=== PATIENT | female | born 1955 | race Caucasian/White ===

== ENCOUNTER 2018-02-20 07:57 | Inpatient (IN) | payer OTHER, MEDICAID ==
[2018-02-20] VITALS (9 sets, daily range): BP systolic 112–186; BP diastolic 55–107
[~2018-02-20] VITALS: Ht 167.6 cm; Wt 78.5 kg
[2018-02-20 08:31] LABS: HEMATOCRIT 31.8 % (37.0-47.0); PLATELET COUNT* 277 thou/uL (150-400); RBC 3.93 mil/uL (4.20-5.00); WBC 11.6 thou/uL (4.0-11.0)
[2018-02-20 08:32] LABS: ABSOLUTE BASOPHILS 0.1 thou/uL (0.0-0.2); ABSOLUTE EOSINOPHILS 0.2 thou/uL (0.0-0.7); ABSOLUTE LYMPHOCYTES 2.2 thou/uL (0.8-5.3); ABSOLUTE MONOCYTES 1.1 thou/uL (0.0-1.2); ABSOLUTE NEUTROPHILS 8.1 thou/uL (1.6-8.1); BASOPHILS 0.8 %; EOSINOPHILS 1.6 %; HEMOGLOBIN 10.5 gm/dL (12.0-15.0); LYMPHOCYTES 18.8 %; MCH 26.6 pg (26.0-34.0); MCHC 32.9 g/dL (28.0-37.0); MCV 80.9 fL (80.0-100.0); MONOCYTES 9.3 %; MPV 7.6 fl. (7.2-11.1); NUCLEATED RBCS 0 /100WBC; POLYS 69.5 %; RDW-CV 13.5 % (10.5-14.5)
[2018-02-20 08:41] LABS: APTT 25.9 Seconds (25.0-31.3); INR 1.1; PROTIME 10.3 Seconds (9.20-11.50)
[2018-02-20 08:52] LABS: ANION GAP 5 mmol/L (7-16); BUN 43 mg/dL (7-18); CALCIUM 8.5 mg/dL (8.5-10.1); CHLORIDE 105 mmol/L (98-107); CO2 29 mmol/L (21-32); GLUCOSE 313 mg/dL (70-99); POTASSIUM 5.4 mmol/L (3.5-5.1); SODIUM 139 mmol/L (136-145)
[2018-02-20 08:57] LABS: ALBUMIN 3.1 g/dL (3.4-5.0); ALKALINE PHOSPHATASE 130 U/L (46-116); NT-PRO BRAIN NAT PEPTIDE 6302 pg/mL (<300); SGOT 18 U/L (15-37); SGPT 17 U/L (30-65); TOTAL BILIRUBIN 0.2 mg/dL (<0.1-1.0); TOTAL PROTEIN 6.9 g/dL (6.4-8.2); TROPONIN-I LEVEL <0.06 ng/mL (<0.06)
[2018-02-20] MEDS ORDERED: CARVEDILOL3.125 MG PO (09:13)
[2018-02-20] MEDS ORDERED: IMDUR 30 MG TAB30 M1 PO (09:13)
[2018-02-20] MEDS ORDERED: LANTUS100 UNIT/M SUBQ (09:14)
[2018-02-20] MEDS ORDERED: NOVOLOG100 UNIT/1 SUBQ ×2 (09:15)
[2018-02-20] MEDS ORDERED: ASPIR 8181 MG PO (09:16)
[2018-02-20 10:07] LABS: BE -1.6 mmol/L (-2 to +3); HCO3 23.9 mmol/L (22.0-26.0); PCO2 43.4 mmHg (35.0-45.0); PO2 93.8 mmHg (75.0-100.0); pH 7.358 (7.340-7.450)
[2018-02-20 17:29] LABS: CALCIUM 8.3 mg/dL (8.5-10.1); CREATININE 2.2 mg/dL (0.6-1.3)
[2018-02-20 17:31] LABS: POTASSIUM 4.2 mmol/L (3.5-5.1)
[2018-02-21] VITALS (11 sets, daily range): BP systolic 107–134; BP diastolic 59–67
[2018-02-21 04:35] LABS: HEMATOCRIT 27.5 % (37.0-47.0); HEMOGLOBIN 9.1 gm/dL (12.0-15.0); MCH 27.1 pg (26.0-34.0); MCHC 33.3 g/dL (28.0-37.0); MCV 81.4 fL (80.0-100.0); MPV 7.8 fl. (7.2-11.1); RBC 3.37 mil/uL (4.20-5.00)
[2018-02-21 05:06] LABS: ALBUMIN 2.4 g/dL (3.4-5.0); CALCIUM 8.1 mg/dL (8.5-10.1); CREATININE 2.5 mg/dL (0.6-1.3); MAGNESIUM 1.8 mg/dL (1.8-2.4); POTASSIUM 4.5 mmol/L (3.5-5.1); TOTAL BILIRUBIN 0.2 mg/dL (<0.1-1.0); TOTAL PROTEIN 5.6 g/dL (6.4-8.2)
[2018-02-21 09:57] LABS: URINE BILIRUBIN NEGATIVE (Negative); URINE BLOOD NEGATIVE (Negative); URINE CLARITY CLEAR; URINE COLOR YELLOW; URINE GLUCOSE-RANDOM NEGATIVE (Negative); URINE KETONES NEGATIVE (Negative); URINE LEUKOCYTES-REFLEX NEGATIVE (Negative); URINE NITRITE-REFLEX NEGATIVE (Negative); URINE PROTEIN 2+ (Negative); URINE SPECIFIC GRAVITY 1.025 (1.005-1.030); URINE UROBILINOGEN 0.2 E.U./dl (0.2-1.0)
[2018-02-21 10:01] LABS: URINE POTASSIUM-RANDOM 37.2 mmol/L
[2018-02-21 10:08] LABS: SQUAMOUS 4-10 Moderate /LPF (0-3)
[2018-02-21 10:09] LABS: BACTERIA-REFLEX None Seen /HPF (None Seen); MUCUS 0-3 Light strn/LPF (None Seen); URINE RBC 0-2 Rare /HPF (0-2); URINE WBC-REFLEX 0-5 Rare /HPF (0-5)
[2018-02-21 10:10] LABS: CRYSTALS None Seen /LPF (None Seen); HYALINE CASTS 0-3 Few /LPF (None Seen)
--- NOTE | 2018-02-21 11:38 | EKG ---
[place] [address] ELECTROCARDIOGRAM REPORT Name: MARILUZ BARBOZA Room: [address] IN .R.#: [id number] Admission: 02/20/18 Attend Phys: Jose Suh, Discharge: Date of : 53 Report #: [id number] THIS REPORT FOR: //name// [facility] ED Test Date: 2018-02-20 Test Time: 09:25:30 Pat Name: MARILUZ BARBOZA Department: Room: Gender: F Lumpia W[employer] Maker: PATRICIA : 1955 Requested By: Sheldon Lewis Order Number: [id number] MD: Moises Ovalles Measurements Intervals [place] Rate: 64 P: 54 IN: 157 QRS: -28 QRSD: 133 T: 164 QT: 452 QTc: 467 Interpretive Statements Sinus rhythm Probable left atrial enlargement Left bundle branch block Compared to ECG 03/07/2009 03:10:29 Left bundle-branch block now present Myocardial infarct finding no longer present T-wave abnormality no longer present Electronically Signed On 02-21-2018 11:38:25 CDT by Moises Ovalles [email or web address] <ELECTRONICALLY SIGNED> By: Moises Ovalles MD, [facility] 02/21/18 1138 0925 0925 Moises Ovalles MD, [facility] /EPI
--- NOTE | 2018-02-21 13:19 | 2DMMODE ---
[place] [address] 2 D/M-MODE ECHOCARDIOGRAM Name: MARILUZ BARBOZA Room: 001-[facility] IN [facility]#: [id number] Admission: 02/20/18 Attend Phys: Jose Garcia Discharge: Date of : 53 Date of Service: 02/21/18 1319 Report #: [id number] THIS REPORT FOR: //name// APPROVED REPORT Study performed: 02/21/2018 09:38:21 EXAM: Comprehensive 2D, Doppler, and color-flow Echocardiogram Patient Location: In-Patient Room #: 001 Status: routine BSA: 1.91 HR: 81 bpm BP: 116/66 mmHg Rhythm: NSR Other Information Study Quality: Good Indications Congestive Heart Failure 2D Dimensions LVEF(%): 16.14 (>50%) IVSd: 14.90 (7-11mm) LVOT Diam: 21.15 (18-24mm) LVDd: 52.37 mm PWd: 11.98 (7-11mm) Ascending Ao: 29.62 (22-36mm) LVDs: 48.55 (25-40mm) Aortic Root: 31.42 mm Parr's LVEF: 16.14 % Volumes Left Atrial Volume (Systole) LA ESV Index: 42.00 mL/m2 Aortic Valve AoV Peak Ney.: 1.83 m/s AO Peak Gr.: 13.41 mmHg LVOT Max P.44 mmHg AO Mean Gr.: 7.48 mmHg LVOT Mean P.07 mmHg LVOT Max V: 1.05 m/s AO V2 VTI: 32.51 cm LVOT Mean V: 0.65 m/s LISETH (VTI): 1.93 cm2 LVOT V1 VTI: 17.85 cm Mitral Valve E/A Ratio: 0.72 [place] [address] 2 D/M-MODE ECHOCARDIOGRAM Name: MARILUZ BARBOZA Room: [address] IN .R.#: [id number] Admission: 02/20/18 Attend Phys: Jose Garcia Discharge: Date of : 53 Date of Service: 02/21/18 1319 Report #: [id number] MV Decel. Time: 145.04 ms MV E Max Ney.: 0.81 m/s MV PHT: 42.06 ms MVA (PHT): 5.23 cm2 TDI E/Lateral E': 8.10 E/Medial E': 11.57 Medial E' Ney.: 0.07 m/s Lateral E' Ney.: 0.10 m/s Pulmonary Valve PV Peak Ney.: 1.15 m/s PV Peak Gr.: 5.31 mmHg Tricuspid Valve TR Peak Gr.: 36.85 mmHg RVSP: 41.00 mmHg Left Ventricle The left ventricle is normal size. There is moderate global hypokinesis of the left ventricle. Mild concentric left ventricular hypertrophy. Left ventricular systolic function is moderately decreased. LVEF is 35-40%. Grade I - abnormal relaxation pattern. Right Ventricle The right ventricle is normal size. The right ventricular systolic function is normal. Atria Left atrium is mild to moderately dilated. The right atrium size is normal. Aortic Valve Mild aortic valve sclerosis. No aortic regurgitation is present. No hemodynamically significant valvular aortic stenosis. Mitral Valve The mitral valve is normal in structure. Mild mitral regurgitation. No evidence of mitral valve stenosis. Tricuspid Valve The tricuspid valve is normal in structure. Mild tricuspid regurgitation. The RVSP is 40-45 mmHg. Pulmonic Valve The pulmonary valve is normal in structure. There is no pulmonic [place] [address] 2 D/M-MODE ECHOCARDIOGRAM Name: MARILUZ BARBOZA Room: [address] IN [facility]#: [id number] Admission: 02/20/18 Attend Phys: Jose Garcia Discharge: Date of : 53 Date of Service: 02/21/18 1319 Report #: [id number] Great Vessels The aortic root is normal in size. IVC is normal in size and collapses with >50% inspiration Pericardium There is no pericardial effusion. <Conclusion> The left ventricle is normal size. Mild concentric left ventricular hypertrophy. Left ventricular systolic function is moderately decreased. LVEF is 35-40%. Grade I - abnormal relaxation pattern. The right ventricle is normal size. Left atrium is mild to moderately dilated. Mild aortic valve sclerosis. No aortic regurgitation is present. No hemodynamically significant valvular aortic stenosis. The mitral valve is normal in structure. Mild mitral regurgitation. The tricuspid valve is normal in structure. Mild tricuspid regurgitation. The RVSP is 40-45 mmHg. IVC is normal in size and collapses with >50% inspiration There is no pericardial effusion. There is moderate global hypokinesis of the left ventricle. <ELECTRONICALLY SIGNED> By: Moises Ovalles MD, FACC 02/21/18 1319 18 18 Moises Ovalles MD, FACC /INF
[2018-02-22] VITALS (11 sets, daily range): BP systolic 115–196; BP diastolic 57–102
[2018-02-22 04:41] LABS: HEMOGLOBIN 9.6 gm/dL (12.0-15.0); MCH 26.5 pg (26.0-34.0); MCHC 33.1 g/dL (28.0-37.0); MCV 80.2 fL (80.0-100.0); MPV 8.4 fl. (7.2-11.1); RBC 3.61 mil/uL (4.20-5.00); RDW-CV 14.3 % (10.5-14.5); WBC 13.1 thou/uL (4.0-11.0)
[2018-02-22 04:47] LABS: ALBUMIN 2.6 g/dL (3.4-5.0); CALCIUM 8.3 mg/dL (8.5-10.1); CREATININE 2.7 mg/dL (0.6-1.3); PHOSPHORUS* 6.5 mg/dL (2.5-4.9); POTASSIUM 4.9 mmol/L (3.5-5.1)
[2018-02-22 05:00] LABS: MAGNESIUM 1.8 mg/dL (1.8-2.4)
--- NOTE | 2018-02-22 09:35 | CON ---
[address] [address] CONSULTATION Name: MARILUZ BARBOZA Room: [address] IN M.R.#: [id number] Admission: 02/20/18 Attend Phys: Jose Suh, Discharge: Date of : 53 Report #: [id number] THIS REPORT FOR: //name// CC: Chuckie Suh NEPHROLOGY CONSULTATION CONSULTING PHYSICIAN: Dr. Suh. REASON FOR CONSULTATION: Acute kidney injury. HISTORY OF PRESENT ILLNESS: A 62-year-old female who was admitted with shortness of breath, which had progressively gotten worse. She underwent a coronary bypass surgery at [facility] about 3 months ago. She was intubated and there were concerns for pneumonia and pulmonary edema. She is currently being followed by Cardiology and Pulmonology. She did receive one dose of Lasix in the ER and today she is on a weaning trial. Her chest x-ray appears to be improved. Her creatinine has risen. She does not have an outpatient skid man. History is obtained largely through the chart review. REVIEW OF SYSTEMS: Constitutional, psych, heme, eyes, ENT, respiratory, cardiac, GI, , endocrine, all negative except as documented above. PAST MEDICAL HISTORY: Coronary artery disease with a history of CABG at [facility] in 11/2017. There is mention in the chart of a history of hepatitis. She has a history of diabetes, history of carotid endarterectomy. CURRENT MEDICATIONS: Reviewed. SOCIAL HISTORY: No tobacco. FAMILY HISTORY: Positive for hypertension. PHYSICAL EXAMINATION: VITAL SIGNS: Blood pressure 115/65, pulse 55, respirations 12, temperature 36.6. GENERAL: No acute distress. EYES: Closed. EARS: Externally normal. CARDIOVASCULAR: Regular rate. LUNGS: Diminished breath sounds. ABDOMEN: Soft. MUSCULOSKELETAL: Nontender. PSYCHIATRIC: Intubated and somewhat restless. LABORATORY DATA: White cell count 10, hemoglobin 9.1, platelets 216[place] [address] CONSULTATION Name: MARILUZ BARBOZA Room: [address] IN [facility]#: [id number] Admission: 02/20/18 Attend Phys: Jose Suh, Discharge: Date of : 53 Report #: [id number], potassium 4.5, chloride 107, bicarbonate 25, BUN 51, creatinine 2.5, glucose 220, calcium 8.1, magnesium 1.8, albumin 2.4. UA noted. ASSESSMENT: 1. Acute kidney injury with admission creatinine of 2. UA noted. Creatinine up to 2.5 on 02/21. 2. Hypoalbuminemia with an albumin of 2.4 on 02/21. 3. Proteinuria with urine protein to creatinine ratio of 1.4. 4. Anemia with hemoglobin of 9.1 on 02/21. 5. Questionable left kidney fluid collection/cyst/mass described on ultrasound. 6. Pulmonary edema on admission. 7. Coronary artery disease with coronary artery bypass graft at [facility] 3 months ago. 8. Diabetes. 9. History of carotid endarterectomy. PLAN: 1. She has good urine output. Chest x-ray appears improved. Creatinine has bumped up today. Would hold on any further diuresis. She has good urine output. 2. She is on antibiotics. 3. 10/2017, EF was 50%. 4. She will need a followup renal imaging. At this time, I do not feel there is any urgent need to repeat this. We will monitor closely. Thank you for requesting my opinion in the care and management of this patient. <ELECTRONICALLY SIGNED> By: David Sanchez MD 02/22/18 0935 1138 [id number] Sanchez MD /nt
[2018-02-22 10:53] LABS: BE -4.8 mmol/L (-2 to +3); HCO3 19.6 mmol/L (22.0-26.0); PCO2 34.2 mmHg (35.0-45.0); PO2 78.4 mmHg (75.0-100.0); pH 7.377 (7.340-7.450)
[2018-02-23] VITALS (17 sets, daily range): BP systolic 124–182; BP diastolic 58–108
[2018-02-23 03:45] LABS: HEMATOCRIT 33.6 % (37.0-47.0); HEMOGLOBIN 11.1 gm/dL (12.0-15.0); MCH 26.5 pg (26.0-34.0); MCV 80.4 fL (80.0-100.0); RBC 4.18 mil/uL (4.20-5.00); RDW-CV 14.2 % (10.5-14.5); WBC 15.7 thou/uL (4.0-11.0)
[2018-02-23 04:01] LABS: ALBUMIN 2.5 g/dL (3.4-5.0); CALCIUM 8.3 mg/dL (8.5-10.1); CREATININE 2.3 mg/dL (0.6-1.3); POTASSIUM 4.1 mmol/L (3.5-5.1); TOTAL BILIRUBIN 0.2 mg/dL (<0.1-1.0)
[2018-02-23 08:39] LABS: BE -3.6 mmol/L (-2 to +3); HCO3 20.6 mmol/L (22.0-26.0); PCO2 34.5 mmHg (35.0-45.0); PO2 109.5 mmHg (75.0-100.0); pH 7.393 (7.340-7.450)
[2018-02-23 13:39] LABS: BE -3.4 mmol/L (-2 to +3); HCO3 20.4 mmol/L (22.0-26.0); PCO2 32.9 mmHg (35.0-45.0); PO2 110.5 mmHg (75.0-100.0)
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
[2018-02-23 15:38] LABS: BE -2.8 mmol/L (-2 to +3); HCO3 20.8 mmol/L (22.0-26.0); PCO2 32.6 mmHg (35.0-45.0); PO2 101.5 mmHg (75.0-100.0); pH 7.422 (7.340-7.450)
[2018-02-24] VITALS (18 sets, daily range): BP systolic 105–157; BP diastolic 60–86
[2018-02-24 03:59] LABS: HEMATOCRIT 37.4 % (37.0-47.0); HEMOGLOBIN 12.2 gm/dL (12.0-15.0); MCH 26.4 pg (26.0-34.0); MCHC 32.5 g/dL (28.0-37.0); MCV 81.1 fL (80.0-100.0); MPV 7.6 fl. (7.2-11.1); RBC 4.61 mil/uL (4.20-5.00); RDW-CV 14.5 % (10.5-14.5); WBC 20.9 thou/uL (4.0-11.0)
[2018-02-24 04:12] LABS: CALCIUM 8.8 mg/dL (8.5-10.1); CREATININE 2.3 mg/dL (0.6-1.3); POTASSIUM 4.4 mmol/L (3.5-5.1); TOTAL BILIRUBIN 0.3 mg/dL (<0.1-1.0); TOTAL PROTEIN 6.8 g/dL (6.4-8.2)
[2018-02-24 04:30] LABS: BE -2.9 mmol/L (-2 to +3); HCO3 21.1 mmol/L (22.0-26.0); PCO2 34.5 mmHg (35.0-45.0); pH 7.405 (7.340-7.450)
[2018-02-24 04:31] LABS: PO2 125.7 mmHg (75.0-100.0)
[2018-02-24 04:39] LABS: ALBUMIN 3.1 g/dL (3.4-5.0); CALCIUM 8.8 mg/dL (8.5-10.1); CREATININE 2.3 mg/dL (0.6-1.3); PHOSPHORUS* 5.2 mg/dL (2.5-4.9); POTASSIUM 4.4 mmol/L (3.5-5.1)
[2018-02-25] VITALS (8 sets, daily range): BP systolic 113–174; BP diastolic 59–91
[2018-02-25 02:07] LABS: GLYCOHEMOGLOBIN (HGB A1C) 7.7 % (4.8-5.6)
[2018-02-25 04:09] LABS: HEMATOCRIT 35.7 % (37.0-47.0); HEMOGLOBIN 11.6 gm/dL (12.0-15.0); MCH 26.4 pg (26.0-34.0); MCHC 32.4 g/dL (28.0-37.0); MCV 81.5 fL (80.0-100.0); MPV 7.8 fl. (7.2-11.1); RBC 4.38 mil/uL (4.20-5.00); RDW-CV 14.2 % (10.5-14.5); WBC 17.4 thou/uL (4.0-11.0)
[2018-02-25 04:36] LABS: CALCIUM 8.5 mg/dL (8.5-10.1); CREATININE 2.4 mg/dL (0.6-1.3); MAGNESIUM 2.2 mg/dL (1.8-2.4); POTASSIUM 4.3 mmol/L (3.5-5.1)
[2018-02-25 10:48] LABS: CHOLESTEROL 313 mg/dL (<200); HDL CHOLESTEROL 32 mg/dL (>40); TC:HDL 9.8 Ratio (Not establshd); TRIGLYCERIDE 470 mg/dL (<150); VLDL 94 mg/dL (<40)
[2018-02-25 10:49] LABS: LDL CHOLESTEROL ND mg/dL (<100); SERUM ASSESSMENT Clear
[2018-02-26 00:05] VITALS: BP 141/77
[2018-02-26 05:46] LABS: HEMATOCRIT 33.9 % (37.0-47.0); HEMOGLOBIN 11.1 gm/dL (12.0-15.0); MCH 26.5 pg (26.0-34.0); MCHC 32.8 g/dL (28.0-37.0); MCV 80.8 fL (80.0-100.0); MPV 7.7 fl. (7.2-11.1); RBC 4.2 mil/uL (4.20-5.00); RDW-CV 14.2 % (10.5-14.5); WBC 13.5 thou/uL (4.0-11.0)
[2018-02-26 06:13] LABS: ALBUMIN 2.9 g/dL (3.4-5.0); CALCIUM 8.4 mg/dL (8.5-10.1); CREATININE 2.4 mg/dL (0.6-1.3); MAGNESIUM 2.3 mg/dL (1.8-2.4); POTASSIUM 4.4 mmol/L (3.5-5.1); TOTAL BILIRUBIN 0.2 mg/dL (<0.1-1.0); TOTAL PROTEIN 5.9 g/dL (6.4-8.2)
[2018-02-26 08:00] VITALS: BP 106/52
[2018-02-26 11:00] VITALS: BP 122/70
[2018-02-26 20:00] VITALS: BP 141/82
[2018-02-27 00:45] VITALS: BP 158/83
[2018-02-27 04:23] VITALS: BP 115/57
[2018-02-27 09:30] VITALS: BP 124/65
[2018-02-27 11:00] VITALS: BP 118/66
[2018-02-27 16:00] VITALS: BP 128/71
--- NOTE | 2018-02-27 17:30 | CON ---
[address] [address] CONSULTATION Name: MARILUZ BARBOZA Room: [address] IN M.R.#: [id number] Admission: 02/20/18 Attend Phys: Jose Suh, Discharge: Date of : 53 Report #: [id number] THIS REPORT FOR: //name// CC: Chuckie Suh DATE OF SERVICE: 02/20/2018 HISTORY OF PRESENT ILLNESS: The patient is a 62-year-old white female who I was asked to see in the hospital today after she had to be intubated for shortness of breath. The patient has an extensive past medical history. Unfortunately, she has never been here to [place] before. However, she does have a long history of hypertension, diabetes, and hyperlipidemia. She has a history of chest pain. Apparently, a year and a half ago she had a coronary stent placed at because of insurance purposes. However, she developed restenosis. She had recurrent chest pain and eventually because of insurance purpose she had to go to [facility] on the [address] and had quadruple coronary artery bypass surgery in November of this year. She apparently had carotid endarterectomy at the same time. According to the sister who is present, surgery went well. However, since the surgery she has been persistently short of breath. She is now on home oxygen. She has had to be readmitted to [facility] in [place] with fluid overload. She will get diuresed, but develop renal insufficiency, has to be taken off of Lasix. She has had a thoracentesis at [facility]. Recently, she has had increasing shortness of breath. Because of the severe shortness of breath, she finally called an ambulance today and brought to [place] and had to be intubated. I was asked to see her for further evaluation and treatment. Apparently, according to sister who is present, she has not had any significant cough, although she has had a fever and swelling of her feet. She has been lightheaded. She has had some right-sided chest pain that is nonexertional. She has had no palpitations or syncope. PAST MEDICAL HISTORY: Otherwise significant for tonsillectomy, hysterectomy, hypertension, diabetes, hyperlipidemia. MEDICATIONS: On admission consisted of Imdur, carvedilol, insulin, aspirin. ALLERGIES: SHE HAS INTOLERANCE TO CODEINE, PENICILLIN, AND SULFA. FAMILY HISTORY: Her mom had a stroke. SOCIAL HISTORY: She is . She and her live in [place]. No smoking or alcohol abuse. REVIEW OF SYSTEMS: She apparently has never had a stroke. [place] [address] CONSULTATION Name: MARILUZ BARBOZA Room: [address] IN .R#: [id number] Admission: 02/20/18 Attend Phys: Jose Suh, Discharge: Date of : 53 Report #: [id number] because of glaucoma and diabetes. She has no history of asthma. She has had a peptic ulcer. She has chronic kidney disease. No liver disease, no cancer. No psychiatric illness. PHYSICAL EXAMINATION: GENERAL: Revealed an elderly female who is lying in bed. She is intubated. VITAL SIGNS: She has blood pressure of 140/80, pulse 70. She is afebrile. HEENT: She is anicteric, conjunctivae pink. Mucous membranes appear dry. NECK: Veins not distended. Neck was supple. CHEST: Clear to auscultation. CARDIAC: Regular rate and rhythm. ABDOMEN: Soft. EXTREMITIES: Had no pitting edema. Dorsalis pedis pulse could not be palpated. SKIN: Cool and dry. NEUROLOGIC: She was moving extremities to pain. LABORATORY DATA: ECG shows a sinus rhythm, left ventricular hypertrophy, repolarization changes, evidence of previous septal infarction. Workup in the Emergency Room today, she had portable chest x-ray that showed the patient was intubated, left pleural effusion, in fact she has pneumonia with pulmonary infiltrates, cardiomegaly. Her lab work, sodium 139, BUN 43, creatinine 2.0, potassium 5.4, albumin 3.1. Troponin 0.06. BNP 6302. White blood cell count 11.6, hemoglobin 10.5. IMPRESSION AND RECOMMENDATIONS: 1. Pneumonia. The patient is currently intubated. 2. Diastolic heart failure. The patient has been on Lasix. 3. Chronic kidney disease. 4. Diabetes. 5. Hypertension. The patient has been on a beta shemar. 6. Hyperlipidemia. The patient does not appear to be on a statin drug at this time. 7. Legally blind. 8. Status post carotid endarterectomy. <ELECTRONICALLY SIGNED> By: Lonny Silva MD, FACC 02/27/18 1730 1259 [id number] Silva MD, FACC /nt
[2018-02-27 20:00] VITALS: BP 154/90
[2018-02-28] VITALS: BP 143/72; BP 164/84
[2018-02-28 03:35] VITALS: BP 127/69
[2018-02-28 08:15] VITALS: BP 186/90
[2018-02-28] MEDS ORDERED: HOME MEDICATION OPHTHALMIC (11:59)
[2018-02-28] MEDS ORDERED: LEVAQUIN 250 M250 MG PO (11:59)
[2018-02-28 12:00] VITALS: BP 125/61
[2018-02-28 16:00] VITALS: BP 135/73
[2018-02-28 20:00] VITALS: BP 156/85
[2018-03-01] VITALS: BP 138/82
[2018-03-01 01:41] LABS: URINE BILIRUBIN NEGATIVE (Negative); URINE BLOOD 2+ (Negative); URINE CLARITY CLEAR; URINE COLOR STRAW; URINE GLUCOSE-RANDOM 2+ (Negative); URINE KETONES NEGATIVE (Negative); URINE LEUKOCYTES-REFLEX NEGATIVE (Negative); URINE NITRITE-REFLEX NEGATIVE (Negative); URINE PROTEIN 3+ (Negative); URINE UROBILINOGEN 0.2 E.U./dl (0.2-1.0)
[2018-03-01 02:18] LABS: CASTS None Seen /LPF (None Seen); SQUAMOUS 4-10 Moderate /LPF (0-3)
[2018-03-01 02:19] LABS: BACTERIA-REFLEX 1-9 Few /HPF (None Seen); CRYSTALS None Seen /LPF (None Seen); URINE RBC 0-2 Rare /HPF (0-2); URINE WBC-REFLEX 0-5 Rare /HPF (0-5)
[2018-03-01 04:38] VITALS: BP 127/69
[2018-03-01 05:17] LABS: HEMATOCRIT 30.5 % (37.0-47.0); HEMOGLOBIN 9.8 gm/dL (12.0-15.0); MCH 26.1 pg (26.0-34.0); MCHC 32.1 g/dL (28.0-37.0); MCV 81.5 fL (80.0-100.0); MPV 7.7 fl. (7.2-11.1); RBC 3.74 mil/uL (4.20-5.00); RDW-CV 14.1 % (10.5-14.5)
[2018-03-01 05:38] LABS: ALBUMIN 2.5 g/dL (3.4-5.0); CALCIUM 8.1 mg/dL (8.5-10.1); MAGNESIUM 1.9 mg/dL (1.8-2.4); POTASSIUM 4.3 mmol/L (3.5-5.1); TOTAL BILIRUBIN 0.2 mg/dL (<0.1-1.0); TOTAL PROTEIN 5.5 g/dL (6.4-8.2)
[2018-03-01 08:30] VITALS: BP 171/91
[2018-03-01 12:14] VITALS: BP 125/67
[2018-03-01 15:49] VITALS: BP 130/77
[2018-03-01 20:20] VITALS: BP 157/84
[2018-03-02] VITALS: BP 155/92
[2018-03-02 03:59] VITALS: BP 126/70
[2018-03-02 08:00] VITALS: BP 155/88
[2018-03-02 11:46] VITALS: BP 155/88
[2018-03-02 12:00] VITALS: BP 95/61
[2018-03-02] MEDS ORDERED: IMDUR 30 MG TAB30 M1 PO (12:43)
[2018-03-02] MEDS ORDERED: GAS RELIEF80 MG PO (12:44)
[2018-03-02] MEDS ORDERED: LASIX 40 MG TAB40 M1 PO (12:44)
[2018-03-02] MEDS ORDERED: LANTUS100 UNIT/M SUBQ ×2 (12:45→12:46)
[2018-03-02] MEDS ORDERED: PREDNISONE 20 M20 MG PO (12:45)
== END 2018-03-02 14:38 | disposition home or self-care (01) | DRG 208 ==
LOC: M.ERS 07:57 → M.ICU 08:56 → M.TBA-ER 08:56 → M.ICU 10:15 → M.2W 02-25 12:25
PROVIDERS: Family Medicine; Internal Medicine; Internal Medicine Nephrology; Internal Medicine Pulmonary Disease; Psychiatry & Neurology Neurology; ADMIT Family Medicine
PROC: 0BH17EZ Insertion of Endotracheal Airway into Trachea, Via Natural or Artificial Opening (ICD-10-PCS; principal; 2018-02-20)
PROC: 5A1945Z Respiratory Ventilation, 24-96 Consecutive Hours (ICD-10-PCS; principal; 2018-02-20)
PROC: 02HV33Z Insertion of Infusion Device into Superior Vena Cava, Percutaneous Approach (ICD-10-PCS; principal; 2018-02-20)
DX: J69.0 Pneumonitis due to inhalation of food and vomit (principal); J96.01 Acute respiratory failure with hypoxia; N17.0 Acute kidney failure with tubular necrosis; G93.40 Encephalopathy, unspecified; I50.23 Acute on chronic systolic (congestive) heart failure; I13.0 Hypertensive heart and chronic kidney disease with heart failure and stage 1 through stage 4 chronic kidney disease, or unspecified chronic kidney disease; N18.3 Chronic kidney disease, stage 3 (moderate); E11.40 Type 2 diabetes mellitus with diabetic neuropathy, unspecified; E11.22 Type 2 diabetes mellitus with diabetic chronic kidney disease; I25.10 Atherosclerotic heart disease of native coronary artery without angina pectoris; D64.9 Anemia, unspecified; H54.8 Legal blindness, as defined in USA; K73.9 Chronic hepatitis, unspecified; E78.5 Hyperlipidemia, unspecified; E87.5 Hyperkalemia; F32.9 Major depressive disorder, single episode, unspecified; D33.3 Benign neoplasm of cranial nerves; I16.0 Hypertensive urgency; R80.9 Proteinuria, unspecified; Z90.710 Acquired absence of both cervix and uterus; Z95.1 Presence of aortocoronary bypass graft; Z88.6 Allergy status to analgesic agent; Z88.0 Allergy status to penicillin; Z88.2 Allergy status to sulfonamides; Z98.890 Other specified postprocedural states; Z79.2 Long term (current) use of antibiotics; Z79.82 Long term (current) use of aspirin; Z79.4 Long term (current) use of insulin; Z79.899 Other long term (current) drug therapy; Z88.1 Allergy status to other antibiotic agents; Z88.8 Allergy status to other drugs, medicaments and biological substances; Z91.14 Patient's other noncompliance with medication regimen; Z83.3 Family history of diabetes mellitus; Z82.49 Family history of ischemic heart disease and other diseases of the circulatory system; Z82.3 Family history of stroke

== ENCOUNTER 2018-11-08 05:06 | Emergency (ER) | payer OTHER, MEDICAID ==
[~2018-11-08] VITALS: Ht 162.6 cm; Wt 81.7 kg
[~2018-11-08 05:06] MED LIST: ASPIR 8181 MG PO; CARVEDILOL3.125 MG PO; GAS RELIEF80 MG PO; HOME MEDICATION OPHTHALMIC; IMDUR 30 MG TAB30 M1 PO; LANTUS100 UNIT/M SUBQ; LASIX 40 MG TAB40 M1 PO; LEVAQUIN 250 M250 MG PO; NOVOLOG100 UNIT/1 SUBQ; PREDNISONE 20 M20 MG PO
[2018-11-08 05:22] LABS: BE -7.5 mmol/L (-2 to +3)
[2018-11-08 05:25] LABS: PCO2 54.5 mmHg (35.0-45.0); pH 7.199 (7.340-7.450)
[2018-11-08 05:40] LABS: ABSOLUTE BASOPHILS 0.1 thou/uL (0.0-0.2); ABSOLUTE EOSINOPHILS 0.1 thou/uL (0.0-0.7); ABSOLUTE LYMPHOCYTES 1.8 thou/uL (0.8-5.3); ABSOLUTE NEUTROPHILS 8.5 thou/uL (1.6-8.1); BASOPHILS 0.7 %; EOSINOPHILS 1.3 %; HEMATOCRIT 33.3 % (37.0-47.0); HEMOGLOBIN 10.8 gm/dL (12.0-15.0); LYMPHOCYTES 15.4 %; MCH 27.6 pg (26.0-34.0); MCHC 32.4 g/dL (28.0-37.0); MCV 85.4 fL (80.0-100.0); MONOCYTES 8.5 %; MPV 7.9 fl. (7.2-11.1); NUCLEATED RBCS 0 /100WBC; PLATELET COUNT* 386 thou/uL (150-400); POLYS 74.1 %; RDW-CV 12.7 % (10.5-14.5); WBC 11.5 thou/uL (4.0-11.0)
[2018-11-08 05:55] LABS: PROTIME 10.2 Seconds (9.20-11.50)
[2018-11-08 06:05] LABS: URINE BILIRUBIN NEGATIVE (Negative); URINE BLOOD 2+ (Negative); URINE CLARITY CLEAR; URINE COLOR STRAW; URINE GLUCOSE-RANDOM 3+ (Negative); URINE KETONES NEGATIVE (Negative); URINE LEUKOCYTES-REFLEX NEGATIVE (Negative); URINE NITRITE-REFLEX NEGATIVE (Negative); URINE PROTEIN 3+ (Negative); URINE UROBILINOGEN 0.2 E.U./dl (0.2-1.0)
[2018-11-08 06:09] LABS: ANION GAP 12 mmol/L (7-16); BUN 75 mg/dL (7-18); CALCIUM 8.6 mg/dL (8.5-10.1); CHLORIDE 103 mmol/L (98-107); CO2 22 mmol/L (21-32); CREATININE 3.2 mg/dL (0.6-1.3); GLUCOSE 405 mg/dL (70-99); SODIUM 137 mmol/L (136-145)
[2018-11-08 06:17] LABS: ALKALINE PHOSPHATASE 114 U/L (46-116); NT-PRO BRAIN NAT PEPTIDE 14411 pg/mL (<300); SGOT 16 U/L (15-37); SGPT 16 U/L (30-65); TOTAL BILIRUBIN 0.2 mg/dL (<0.1-1.0); TROPONIN-I LEVEL <0.06 ng/mL (<0.06)
[2018-11-08 06:20] LABS: AMORPHOUS URATES Few /LPF (None Seen); BACTERIA-REFLEX 1-9 Few /HPF (None Seen); CASTS None Seen /LPF (None Seen); MUCUS 4-6 Moderate strn/LPF (None Seen); SQUAMOUS 0-3 Few /LPF (0-3); URINE RBC 3-10 Few /HPF (0-2); URINE WBC-REFLEX 0-5 Rare /HPF (0-5)
[2018-11-08] MEDS ORDERED: CARVEDILOL12.5 MG PO (06:48)
[2018-11-08 07:16] LABS: BE -4.9 mmol/L (-2 to +3); PCO2 39.6 mmHg (35.0-45.0); pH 7.333 (7.340-7.450)
[2018-11-08 07:18] LABS: PO2 356.3 mmHg (75.0-100.0)
[2018-11-08 08:50] VITALS: BP 157/81
--- NOTE | 2018-11-08 09:48 | EKG ---
[place] [address] ELECTROCARDIOGRAM REPORT Name: MARILUZ BARBOZA Room: [facility]#: [id number] Admission: 11/08/18 Attend Phys: Discharge: 11/08/18 Date of : 53 Report #: [id number] THIS REPORT FOR: //name// [facility] ED Test Date: 2018-11-08 Test Time: 05:26:51 Pat Name: MARILUZ BARBOZA Department: Room: Gender: F [employer]: MIGUEL ANGEL : 1955 Requested By: Wendy Su Order Number: [id number] MD: Taz Bowie Measurements Intervals [place] Rate: 93 P: 148 VA: 160 QRS: -27 QRSD: 146 T: 152 QT: 411 QTc: 512 Interpretive Statements Sinus or ectopic atrial rhythm Left atrial enlargement IVCD, consider atypical LBBB Compared to ECG 02/20/2018 09:25:30 Ectopic atrial rhythm now present Sinus rhythm no longer present Electronically Signed On 11-08-2018 9:48:23 MANDREL CLEANER by Taz Bowie [email or web address] <ELECTRONICALLY SIGNED> By: Taz Bowie MD, FACC 11/08/18 0948 5 Taz Bowie MD, [facility] /EPI
== END 2018-11-08 08:50 | disposition still patient (30) ==
LOC: M.ERS 05:06
PROVIDERS: Emergency Medicine
DX: I50.9 Heart failure, unspecified (principal); R45.1 Restlessness and agitation; R41.0 Disorientation, unspecified; R09.02 Hypoxemia; E11.9 Type 2 diabetes mellitus without complications; K73.9 Chronic hepatitis, unspecified; Z95.1 Presence of aortocoronary bypass graft; Z90.710 Acquired absence of both cervix and uterus; Z90.49 Acquired absence of other specified parts of digestive tract; Z88.2 Allergy status to sulfonamides; Z88.0 Allergy status to penicillin; Z88.1 Allergy status to other antibiotic agents; Z88.5 Allergy status to narcotic agent; Z88.8 Allergy status to other drugs, medicaments and biological substances

== ENCOUNTER 2019-06-22 10:28 | Inpatient (IN) | payer OTHER, MEDICAID ==
[~2019-06-22] VITALS: Ht 170.2 cm; Wt 76.2 kg
[~2019-06-22 10:28] MED LIST changes: +CARVEDILOL12.5 MG PO
[2019-06-22 10:33] VITALS: BP 187/76
[2019-06-22] MEDS ORDERED: CARVEDILOL12.5 MG PO (10:58)
[2019-06-22] MEDS ORDERED: LANTUS100 UNIT/M SUBQ (11:00)
[2019-06-22 12:45] LABS: ABSOLUTE BASOPHILS 0.1 thou/uL (0.0-0.2); ABSOLUTE EOSINOPHILS 0.1 thou/uL (0.0-0.7); ABSOLUTE LYMPHOCYTES 1.7 thou/uL (0.8-5.3); ABSOLUTE MONOCYTES 0.9 thou/uL (0.0-1.2); ABSOLUTE NEUTROPHILS 5.8 thou/uL (1.6-8.1); EOSINOPHILS 0.8 %; HEMATOCRIT 30.6 % (37.0-47.0); HEMOGLOBIN 10.7 gm/dL (12.0-15.0); LYMPHOCYTES 19.8 %; MCH 29.5 pg (26.0-34.0); MCV 84.5 fL (80.0-100.0); MONOCYTES 10.8 %; MPV 7.4 fl. (7.2-11.1); NUCLEATED RBCS 0 /100WBC; PLATELET COUNT* 245 thou/uL (150-400); POLYS 67.6 %; RBC 3.62 mil/uL (4.20-5.00); RDW-CV 12.5 % (10.5-14.5); WBC 8.6 thou/uL (4.0-11.0)
[2019-06-22 12:53] LABS: ANION GAP 8 mmol/L (7-16); BUN 53 mg/dL (7-18); CALCIUM 8.6 mg/dL (8.5-10.1); CHLORIDE 100 mmol/L (98-107); CO2 30 mmol/L (21-32); GLUCOSE 229 mg/dL (70-99); SODIUM 138 mmol/L (136-145)
[2019-06-22 13:04] LABS: ALBUMIN 3.3 g/dL (3.4-5.0); ALKALINE PHOSPHATASE 92 U/L (46-116); LIPASE 365 U/L (73-393); NT-PRO BRAIN NAT PEPTIDE 9514 pg/mL (<300); SGOT 11 U/L (15-37); SGPT 18 U/L (30-65); TOTAL BILIRUBIN 0.2 mg/dL (<0.1-1.0); TOTAL PROTEIN 6.5 g/dL (6.4-8.2); TROPONIN-I LEVEL <0.06 ng/mL (<0.06)
[2019-06-22 15:45] VITALS: BP 153/69
[2019-06-22 15:50] VITALS: BP 146/77
[2019-06-22] MEDS ORDERED: IMDUR 30 MG TAB30 M1 PO (16:29)
[2019-06-22] MEDS ORDERED: LASIX 40 MG TAB40 M2 PO (16:30)
[2019-06-22] MEDS ORDERED: BRIMONIDINE TAR15 M1 OPHTHALMIC (16:36)
[2019-06-22] MEDS ORDERED: TIMOLOL GL0.5 %/5 M1 OPHTHALMIC (16:38)
--- NOTE | 2019-06-22 17:22 | EKG ---
[place] [address] ELECTROCARDIOGRAM REPORT Name: MARILUZ BARBOZA Room: [address] ADM IN .R.#: [id number] Admission: 06/22/19 Attend Phys: Virgilio Cheney MD Discharge: Date of : 53 Report #: [id number] THIS REPORT FOR: //name// [facility] ED Test Date: 2019-06-22 Test Time: 10:33:10 Pat Name: MARILUZ BARBOZA Department: Room: [facility] Gender: F Hot Car Charger: KAMINI : 1955 Requested By: Aleksandr Lynn Order Number: [id number] MD: Charles Barton Measurements Intervals [place] Rate: 91 P: 95 MN: 188 QRS: -54 QRSD: 124 T: 116 QT: 396 QTc: 488 Interpretive Statements Atrial-sensed ventricular-paced rhythm No further analysis attempted due to paced rhythm Compared to ECG 11/08/2018 05:26:51 Ectopic atrial rhythm no longer present Atrial abnormality no longer present Electronically Signed On 06-22-2019 17:22:47 CDT by Charles Barton [email or web address] <ELECTRONICALLY SIGNED> By: Charles Barton MD, FACC 06/22/19 1722 1033 1033 Charles Barton MD, FAC /EPI
[2019-06-22 17:29] LABS: URINE BILIRUBIN NEGATIVE (Negative); URINE BLOOD 2+ (Negative); URINE CLARITY CLEAR; URINE COLOR YELLOW; URINE GLUCOSE-RANDOM 1+ (Negative); URINE KETONES NEGATIVE (Negative); URINE LEUKOCYTES-REFLEX NEGATIVE (Negative); URINE NITRITE-REFLEX NEGATIVE (Negative); URINE PROTEIN 3+ (Negative); URINE UROBILINOGEN 0.2 E.U./dl (0.2-1.0)
[2019-06-22 17:37] LABS: BACTERIA-REFLEX 1-9 Few /HPF (None Seen); CRYSTALS None Seen /LPF (None Seen); HYALINE CASTS 4-10 Moderate /LPF (None Seen); MUCUS None Seen strn/LPF (None Seen); SQUAMOUS >10 Many /LPF (0-3); URINE RBC 3-10 Few /HPF (0-2); URINE WBC-REFLEX 0-5 Rare /HPF (0-5)
--- NOTE | 2019-06-22 18:15 | NUR ---
PT ADMITTED TO ROOM 205 VIA CART FROM ED AT APPROXIMATELY 1545 WITH CHEST PAIN. PT A&0X4, BILATERALLY BLIND X 2 YEARS. PT DENIES ANY CHEST PAIN AT THIS TIME. PT COMPLAINS OF LLQ PAIN STATING IT HAS BEEN GOING ON FOR 2 YEARS. TRACING V PACED ON THE MID LEVEL PROJECT MANAGER. ON RA SAT 98%. DENIES ANY SHORTNESS OF BREATH. STAT UA OBTAINED. REFER TO RESULTS. PT IS ON HEMODILAYSIS-M,W,F. AV FISTULA NOTED TO RIGHT UPPER EXTREMITY. PT UP WITH 1 ASSIST AND WALKER TO BATHROOM. CARDIOLOGY AND NEPHROLOGY CONSULT IN PLACE. ADMISSION ASSESSMENT AND HISTORY COMPLETED. REFER TO CHARTING. FALL AGREEMENT SIGNED. HOME MEDICATIONS RECONCILED. MEDICATIONS PER NOV. PT REPOSITIONED EVERY 2 HOURS FOR COMFORT. HOURLY ROUNDING OBSERVED. BED IN LOW POSITION. BED ALARM IN PLACE. FALL PRECAUTIONS IN PLACE. CALL LIGHT WITHIN REACH. WILL CONTINUE PLAN OF CARE.
[2019-06-22 19:40] VITALS: BP 160/73
[2019-06-23] VITALS: BP 168/75
[2019-06-23 04:00] VITALS: BP 187/85
[2019-06-23 05:20] VITALS: BP 130/79
--- NOTE | 2019-06-23 05:35 | NUR ---
PT CARE ASSUMED AT 1930. SAT MAINTAINED IN RA. ALERT AND ORIENTED X4. CALL LIGHT WITHIN REACH AND BED IN LOW POSITION. DENIES PAIN AND SOB. HOURLY ROUNDING DONE FOR PT SAFETY.
[2019-06-23 07:41] LABS: ABSOLUTE BASOPHILS 0.1 thou/uL (0.0-0.2); ABSOLUTE EOSINOPHILS 0.1 thou/uL (0.0-0.7); ABSOLUTE LYMPHOCYTES 1.7 thou/uL (0.8-5.3); ABSOLUTE MONOCYTES 0.8 thou/uL (0.0-1.2); ABSOLUTE NEUTROPHILS 5.2 thou/uL (1.6-8.1); BASOPHILS 0.8 %; EOSINOPHILS 1.1 %; HEMOGLOBIN 11.7 gm/dL (12.0-15.0); LYMPHOCYTES 21.4 %; MCH 29.5 pg (26.0-34.0); MCHC 34.5 g/dL (28.0-37.0); MCV 85.4 fL (80.0-100.0); MONOCYTES 10.4 %; MPV 7.2 fl. (7.2-11.1); NUCLEATED RBCS 0 /100WBC; PLATELET COUNT* 256 thou/uL (150-400); POLYS 66.3 %; RBC 3.98 mil/uL (4.20-5.00); RDW-CV 12.4 % (10.5-14.5); WBC 7.9 thou/uL (4.0-11.0)
[2019-06-23 07:54] LABS: CALCIUM 8.7 mg/dL (8.5-10.1); CREATININE 3.5 mg/dL (0.6-1.3)
[2019-06-23 08:15] VITALS: BP 171/75
--- NOTE | 2019-06-23 09:20 | NUR ---
Nutrition: consult for "difficulty eating." Pt is blind, on HD, reports UBW 160 lb. RFT's elevated, albumin 3.1, K+ WNL. Meds reviewed. Pt reports appetite improving, ate >75% breakfast. Pt denies need for tray set up at meals. B-222. Rec adding CHO controlled and renal diet restrcitions. Assess at low nutrition risk at this time.
--- NOTE | 2019-06-23 13:26 | NUR ---
Pt out of room at dialysis, will attempt to assess later
[2019-06-23 16:00] VITALS: BP 155/57
--- NOTE | 2019-06-23 18:49 | NUR ---
PT GIVEN DISCHARGE INFORMATION. IV REMOVED. PT DISCHARGED TO HOME. FALL RISK PRECAUTIONS IN PLACE. HOURLY ROUNDING COMPLETED. PT LEFT VIA WHEELCHAIR WITH FAMILY TO HOME.
--- NOTE | 2019-07-06 05:09 | CON ---
[address] [address] CONSULTATION Name: MARILUZ BARBOZA Room: [address] IN M.R.#: [id number] Admission: 06/22/19 Attend Phys: Virgilio Cheney MD Discharge: 06/23/19 Date of : 53 Report #: [id number] THIS REPORT FOR: //name// CC: Virgilio De Leon Pollack DATE OF SERVICE: 06/23/2019 NEPHROLOGY CONSULTING: CONSULTING PHYSICIAN: Virgilio Cheney MD. REASON FOR NEPHROLOGY CONSULTATION: ESRD, for hemodialysis needs. REASON FOR ADMISSION: Chest pain. HISTORY OF PRESENT ILLNESS: This is a 63-year-old female with past medical history of end-stage renal disease, on hemodialysis every Wednesday, Wednesday and Wednesday at [facility], [facility] under Dr. Sanchez, came in because of chest pain. The patient had a dialysis on Wednesday, but did only 2 hours and then yesterday she started having some dyspnea and some chest pain. Cardiology evaluated her, her troponins have been negative, Cardiology has suggested stress test, they think this is atypical chest pain. The patient has refused stress test for now. She is not having chest pain on an ongoing basis, but she states when she takes a deep breath, she has a little bit of pain in her retrosternal area. She is not short of breath. She is reporting she is making more urine and she is due for dialysis today. REVIEW OF SYSTEMS: As mentioned in history of present illness, otherwise 10-point review of systems are negative. ALLERGIES: CEPHALOSPORINS, CIPROFLOXACIN, CLINDAMYCIN, CODEINE, INSULIN DETEMIR, METFORMIN, PENICILLIN, PRAVASTATIN, STATINS AND SULFA. HOME MEDICATIONS: Include isosorbide mononitrate, Lasix, simethicone, insulin glargine, aspirin, insulin aspart, carvedilol. PAST MEDICAL AND SURGICAL HISTORY: Includes diabetes for 3-4 years; end-stage renal disease, started on dialysis recently; chronic hepatitis; hysterectomy; CABG in 11/2017; congestive heart failure, ejection fraction not known; appendectomy. She is on oxygen 3 liters of nasal cannula at home. FAMILY HISTORY: Reviewed. SOCIAL HISTORY: She lives at home. She does not smoke or drink alcohol [place] [address] CONSULTATION Name: MARILUZ BARBOZA Room: [address]#: [id number] Admission: 06/22/19 Attend Phys: Virgilio Cheney MD Discharge: 06/23/19 Date of : 53 Report #: [id number] PHYSICAL EXAMINATION: VITAL SIGNS: Blood pressure is 171/75, pulse rate 77, temperature 36.6, respiratory rate is 16, pulse ox she is on room air is 100%. GENERAL: She is awake, alert and oriented x 3. She is legally blind. HEAD AND EYES: Atraumatic, normocephalic. EARS, NOSE, AND THROAT: Mucous membranes are moist. NECK: No JVD. CHEST: Bilateral diminished breath sounds posteriorly. No crackles. CARDIOVASCULAR: S1, S2 normal. No murmurs. ABDOMEN: Soft, nondistended, nontender. Bowel sounds are present. EXTREMITIES: There is 1+ edema bilateral lower extremities. DIALYSIS ACCESS: She has a right arm AV fistula with good bruit and thrill. NEUROLOGICAL FUNCTION: Gross neurological function seems to be intact. She is legally blind. PSYCHIATRIC: Mood seems to be normal. LABORATORY DATA: Hemoglobin 11.7, WBC 7.9. Sodium is 141, potassium is 4.0, BUN is 65 and other labs are reviewed. IMAGING: Chest x-ray was reviewed. ASSESSMENT: 1. End-stage renal disease, on hemodialysis every Wednesday, Wednesday, Wednesday. 2. Chest pain, atypical. Cardiology has evaluated and suggested stress test. 3. Hypertension. 4. Diabetes type 2. 5. History of coronary artery disease, status post coronary artery bypass graft in the past. 6. History of chronic congestive heart failure. PLAN: 1. The patient will be dialyzed today because it is her regular dialysis day. 2. We will continue to follow for dialysis needs. 3. Hemoglobin 11.7, currently above goal, no need for Epogen or iron. 4. I also suggest to the patient that if she feels her urine output is increasing, she should report this to her Dialysis Facility and they can check a 24-hour urine for creatinine and urea clearance and see if there is some recovery of her residual kidney function. Thank you for this consultation. We will continue to follow for dialysis needs. <ELECTRONICALLY SIGNED> By: Mechelle Power MD 07/06/19 0509 1032 [id number] Power MD /nt
== END 2019-06-23 18:46 | disposition home or self-care (01) | DRG 391 ==
LOC: M.ERS 10:28 → M.TBA-ER 13:39 → M.2W 15:50
PROVIDERS: Emergency Medicine Emergency Medical Services; ADMIT Internal Medicine
PROC: 5A1D70Z Performance of Urinary Filtration, Intermittent, Less than 6 Hours Per Day (ICD-10-PCS; principal; 2019-06-23)
DX: K21.9 Gastro-esophageal reflux disease without esophagitis (principal); N18.6 End stage renal disease; I13.2 Hypertensive heart and chronic kidney disease with heart failure and with stage 5 chronic kidney disease, or end stage renal disease; J96.10 Chronic respiratory failure, unspecified whether with hypoxia or hypercapnia; I25.10 Atherosclerotic heart disease of native coronary artery without angina pectoris; I25.5 Ischemic cardiomyopathy; E78.5 Hyperlipidemia, unspecified; E11.22 Type 2 diabetes mellitus with diabetic chronic kidney disease; I50.9 Heart failure, unspecified; Z90.710 Acquired absence of both cervix and uterus; Z90.49 Acquired absence of other specified parts of digestive tract; Z95.1 Presence of aortocoronary bypass graft; Z88.6 Allergy status to analgesic agent; Z88.1 Allergy status to other antibiotic agents; Z88.0 Allergy status to penicillin; Z88.2 Allergy status to sulfonamides; Z88.8 Allergy status to other drugs, medicaments and biological substances; Z79.899 Other long term (current) drug therapy

== ENCOUNTER → 2019-09-01 | Outpatient (CLI) | payer MEDICAID ==
[~2019-09-01] MED LIST changes: +BRIMONIDINE TAR15 M1 OPHTHALMIC; +LASIX 40 MG TAB40 M2 PO; +TIMOLOL GL0.5 %/5 M1 OPHTHALMIC
[2019-09-01 14:39] LABS: CALCIUM 8.9 mg/dL (8.5-10.1); CREATININE 5.9 mg/dL (0.6-1.3); POTASSIUM 5.5 mmol/L (3.5-5.1)
== END ==
LOC: M.LAB 13:49
PROVIDERS: Internal Medicine Nephrology
DX: N18.6 End stage renal disease (principal)

== ENCOUNTER 2019-11-16 00:24 | Inpatient (IN) | payer MEDICAID ==
[2019-11-16] VITALS (28 sets, daily range): BP systolic 102–193; BP diastolic 48–91
[~2019-11-16] VITALS: Ht 170.2 cm; Wt 75.6 kg
[2019-11-16 00:51] LABS: BE -5.5 mmol/L (-2 to +3)
[2019-11-16 00:54] LABS: PCO2 50.7 mmHg (35.0-45.0); PO2 270.1 mmHg (75.0-100.0); pH 7.249 (7.340-7.450)
--- NOTE | 2019-11-16 01:08 | NUR ---
FAMILY AT BEDSIDE ANSWERED QUESTIONS; PT A DIALYSIS M-W-, REPORTED MISSED DIALYSIS ON WED DUE TO DIARRHEA; PT HTN RECEIVED HYDRALIZINE ORDERED; NEW IV INSERTED, LUND TO DD; HR TRACING 100% V-PACED RATE 100; WILL CONTINUE TO MONITOR
[2019-11-16 01:10] LABS: URINE BILIRUBIN NEGATIVE (Negative); URINE BLOOD 2+ (Negative); URINE CLARITY CLEAR; URINE COLOR YELLOW; URINE GLUCOSE-RANDOM 3+ (Negative); URINE KETONES NEGATIVE (Negative); URINE LEUKOCYTES-REFLEX NEGATIVE (Negative); URINE NITRITE-REFLEX NEGATIVE (Negative); URINE PROTEIN 3+ (Negative); URINE SPECIFIC GRAVITY 1.025 (1.005-1.030); URINE UROBILINOGEN 0.2 E.U./dl (0.2-1.0)
[2019-11-16 01:35] LABS: HEMATOCRIT 28.5 % (37.0-47.0); HEMOGLOBIN 9.3 gm/dL (12.0-15.0); MCH 29.6 pg (26.0-34.0); MCHC 32.6 g/dL (28.0-37.0); MCV 90.8 fL (80.0-100.0); NUCLEATED RBCS 0 /100WBC; PLATELET COUNT* 259 thou/uL (150-400); RBC 3.14 mil/uL (4.20-5.00); RDW-CV 12.3 % (10.5-14.5); WBC 16.7 thou/uL (4.0-11.0)
[2019-11-16 01:43] LABS: PROTIME 10.4 Seconds (9.20-11.50)
[2019-11-16 01:44] LABS: CREATININE 4.9 mg/dL (0.6-1.3); POTASSIUM 5.4 mmol/L (3.5-5.1)
[2019-11-16 01:46] LABS: AMORPHOUS URATES Many /LPF (None Seen); BACTERIA-REFLEX 1-9 Few /HPF (None Seen); CASTS None Seen /LPF (None Seen); MUCUS 0-3 Light strn/LPF (None Seen); SQUAMOUS 0-3 Few /LPF (0-3); URINE WBC-REFLEX None Seen /HPF (0-5)
[2019-11-16 01:52] LABS: ALBUMIN 2.9 g/dL (3.4-5.0); TOTAL BILIRUBIN 0.3 mg/dL (<0.1-1.0); TOTAL PROTEIN 6.8 g/dL (6.4-8.2)
[2019-11-16 04:36] LABS: ABSOLUTE BASOPHILS 0.2 thou/uL (0.0-0.2); ABSOLUTE EOSINOPHILS 0.2 thou/uL (0.0-0.7); ABSOLUTE LYMPHOCYTES 1.3 thou/uL (0.8-5.3); ABSOLUTE MONOCYTES 0.3 thou/uL (0.0-1.2); ABSOLUTE NEUTROPHILS 14.7 thou/uL (1.6-8.1); ANISOCYTOSIS Occasional; PLATELET ESTIMATE ADEQUATE; TOXIC GRANULATION 1+
--- NOTE | 2019-11-16 09:55 | EKG ---
[place] [address] ELECTROCARDIOGRAM REPORT Name: MARILUZ BARBOZA Room: [address] ADM IN M.R.#: [id number] Admission: 11/16/19 Attend Phys: Billie gamez Sa Discharge: Date of : 53 Date of Service: 11/16/19 0030 Report #: [id number] THIS REPORT FOR: //name// [facility] ED Test Date: 2019-11-16 Test Time: 00:30:03 Pat Name: MARILUZ BARBOZA Department: Room: [facility] Gender: F Road Traffic Controller: : 1955 Requested By: Wendy Su Order Number: [id number] MD: Lonny Silva Measurements Intervals [place] Rate: 101 P: 90 MO: 164 QRS: -34 QRSD: 125 T: 126 QT: 391 QTc: 507 Interpretive Statements Atrial-sensed ventricular-paced complexes left atrial enlargement No further analysis attempted due to paced rhythm Compared to ECG 06/22/2019 10:33:10 No significant changes Electronically Signed On 11-16-2019 9:54:27 ASSOCIATE DIRECTOR FINANCE by Lonny Silva [email or web address] <ELECTRONICALLY SIGNED> By: Lonny Silva MD, [facility] 11/16/19 0954 Lonny Silva MD, [facility] /EPI
--- NOTE | 2019-11-16 12:10 | NUR ---
CM ASSESSMENT: MET WITH PT AND IN ROOM. PT ON BIPAP AND SLEEPING. PER PT LIVES WITH HIM AND IS NEEDS MINIMAL ASSIST WITH ADLS. HER DTR HELPS HER WITH BATHING AND HOUSEWORK. PT DOES NOT USE ANY DME. SHE GETS HEMODIALYSIS MWF WITH [facility]. DTR KEYANA IS DPOA. DISCUSSED POSSIBILITES OF SNF OR HH NEEDS UPON DC. STATES SHE DOES NOT WANT SNF AND DOES NOT NEED HH THEIR DTR IS AN OT AND ASSISTS HER WITH NEEDS. CM WILL CONTINUE TO FOLLOW
[2019-11-16 12:31] LABS: BE -1.6 mmol/L (-2 to +3); PCO2 44.9 mmHg (35.0-45.0); pH 7.347 (7.340-7.450)
[2019-11-16 12:33] LABS: PO2 51.1 mmHg (75.0-100.0)
--- NOTE | 2019-11-16 15:01 | NUR ---
PATIENT ARRIVED FROM THE ER TO THE ICU AT APROX. 0710. PATIENT WAS LETHARGIC AND ON BIPAP. PATIENT HAS BECAME INCREASINGLY SOA FOR THE PAST WEEK. SHE IS A DIALYSIS PATIENT THAT TYPICALLY HAS DIALYSIS AND SHE HAD MISSED IT ON WEDNESDAY DUE TO DIARRHEA AND ONLY HAD IT FOR ABOUT AN HOUR ON THIS PAST WEDNESDAY DUE TO URINARY FREQUENCY. PATIENT FAMILY IS AT BEDSIDE. WHEN PATIENT ARRIVED TO THE ICU SHE WAS ON AN INSULIN DRIP THAT WAS D/C'd. PATIENT STATES THAT SHE DOES NOT LIKE HER BLOOD GLUCOSE TO BE LESS THAN 250 OR IT MAKES HER FEEL TERRIBLE. PATIENT ENCOURAGED TO USE INSULIN FOR GREATER THAN 150 PER ORDERS. PATIENT CURRENTLY RECIEVING DIALYSIS AND IS NOW ON 5L NASAL CANNULA. NO FURTHER CONCERNS AT THIS TIME. WILL CONTINUE TO MONITOR AND CARE PER PLAN OF CARE.
--- NOTE | 2019-11-16 23:11 | NUR ---
RECEIVED REPORT AND ASSUMED CARE OF THE PATIENT AT 1900. VSS. BED LOCKED AND IN LOWEST POSITION. PERSONAL ITEMS AND CALL LIGHT IN REACH. AT BEDSIDE.
[2019-11-17] VITALS (12 sets, daily range): BP systolic 114–144; BP diastolic 64–79
[2019-11-17 04:01] LABS: ABSOLUTE BASOPHILS 0.1 thou/uL (0.0-0.2); ABSOLUTE EOSINOPHILS 0.1 thou/uL (0.0-0.7); ABSOLUTE LYMPHOCYTES 1.1 thou/uL (0.8-5.3); ABSOLUTE MONOCYTES 0.9 thou/uL (0.0-1.2); ABSOLUTE NEUTROPHILS 8.7 thou/uL (1.6-8.1); BASOPHILS 0.5 %; EOSINOPHILS 0.8 %; HEMATOCRIT 26.4 % (37.0-47.0); HEMOGLOBIN 9.1 gm/dL (12.0-15.0); LYMPHOCYTES 9.9 %; MCHC 34.4 g/dL (28.0-37.0); MONOCYTES 8.4 %; MPV 7.6 fl. (7.2-11.1); NUCLEATED RBCS 0 /100WBC; PLATELET COUNT* 221 thou/uL (150-400); POLYS 80.4 %; RBC 3.03 mil/uL (4.20-5.00); RDW-CV 12.7 % (10.5-14.5); WBC 10.8 thou/uL (4.0-11.0)
[2019-11-17 04:08] LABS: CALCIUM 7.9 mg/dL (8.5-10.1)
[2019-11-17 04:32] LABS: CREATININE 3.1 mg/dL (0.6-1.3)
--- NOTE | 2019-11-17 08:15 | CON ---
[address] [address] CONSULTATION Name: MARILUZ BARBOZA Room: [address] IN M.R.#: [id number] Admission: 11/16/19 Attend Phys: Billie Felipe Discharge: Date of : 53 Report #: [id number] THIS REPORT FOR: //name// cc: BERNABE Calzada family physician/PCP BERNABE Calzada family physician/PCP ~ THIS REPORT FOR: //name// CC: BERNABE physician/PCP Billie Escudero DATE OF SERVICE: 11/16/2019 INFECTIOUS DISEASE CONSULTATION ATTENDING PHYSICIAN: Billie Escudero MD. REASON FOR EVALUATION: Suspected aspiration pneumonitis with a complication of respiratory failure. HISTORY OF PRESENT ILLNESS: Chart reviewed, patient examined. This is a 64-year-old woman with a known history of diabetes mellitus type 2. This has been complicated by end-stage renal disease. She is on hemodialysis. She does have known vasculopathy, history of cardiomyopathy, who presented to the Emergency Room with progressive dyspnea and some altered mental status. Initial evaluation by first responders noted her oxygen level was in the 80s. Of note, she had missed dialysis yesterday, which she attributed to some diarrhea per family. She often has difficulty with frequent voiding well while on dialysis and that causes issues as well. At this point, she is quite somnolent and is difficult to ascertain any additional history. Initial blood sugar was greater than 500. ABGs: pH 7.249, pCO2 of 50.7, pO2 of 270.1 on a BiPAP at 100% nasal cannula. Urinalysis was fairly unremarkable, 0 white cells. Lactic acid 1.0, measured glucose of 601 on the metabolic profile, creatinine of 4.9, albumin of 2.9. INR of 1.0. D-dimer was elevated at 1.68. Initial white count was 16.7. Chest x-ray showed bibasilar consolidative pneumonia and probable left pleural effusions. She was started empirically on combination therapy, dosed with levofloxacin and vancomycin. Of note, she does have a longstanding lower extremity issues with somewhat recent left lateral foot ulceration, does have a necrotic component. She has got marked drying of her skin as well; per family, is known to peripheral vascular disease. ALLERGIES: TO PENICILLIN, CEPHALOSPORIN, SULFA, STATINS, CODEINE, CLINDAMYCIN, CIPROFLOXACIN, METFORMIN, INSULIN. CURRENT MEDICATIONS: Include pantoprazole, lidocaine, ipratropium and albuterol inhaler, insulin lispro sliding scale, furosemide, isosorbide mononitrate, carvedilol, aspirin, dosed with levofloxacin [place] [address] CONSULTATION Name: MARILUZ BARBOZA Room: [address] IN M.R.#: [id number] Admission: 11/16/19 Attend Phys: Billie Felipe Discharge: Date of : 53 Report #: [id number] PAST MEDICAL HISTORY: Diabetes mellitus type 2 with diffuse vasculopathy, has end-stage renal disease, on dialysis, has known atherosclerotic coronary artery disease, history of aortocoronary bypass grafting, history of cardiomyopathy with congestive heart failure, does have chronic respiratory failure, requiring supplemental oxygen primarily in the p.m., pacemaker defibrillator. She is blind since 2017. She is post-appendectomy and hysterectomy as well. SOCIAL HISTORY: Disabled, nonsmoker, no ethanol or illicit drug use. FAMILY HISTORY: Noncontributory. REVIEW OF SYSTEMS: Not reliably obtained. PHYSICAL EXAMINATION: GENERAL: She appears chronically ill. She is somnolent, difficult to arouse, in [id number] distress, undernourished. VITAL SIGNS: Temperature 98, pulse 77, respirations 16, blood pressure 118/75. SKIN: Warm, dry, no rashes. HEENT: Normocephalic. Extraocular muscles intact. NECK: Supple. She has got nasal cannula oxygen in place. LUNGS: Few scattered coarse breath sounds. HEART: Regular, has a systolic murmur. ABDOMEN: Mildly distended, soft, no apparent tenderness. EXTREMITIES: Bilateral lower extremities have what appeared to be vascular-type changes, suspect degree of ischemia. She has got some superficial ulcers over the pretibial sites, seems to be, at least according to family, associated with her crossing her legs. She does have a lateral left foot wound. I suspect is pressure related as well. There is only mild degree of inflammation noted superficially. The skin is quite dry. GENITOURINARY: Deferred. RECTAL: Deferred. LABORATORY DATA: Most recent ABGs: pH 7.347, pCO2 of 44.9, pO2 of 51.1 on FiO2 of 45%. Chest x-ray as described above, bibasilar consolidative pneumonia with pleural fluid. CBC: White count of 16.7, H and H 9.3 and 28.5, platelets of 259. Has had 1+ toxic granulations. Electrolytes: Sodium 134, potassium 5.4, chloride 98, bicarbonate is 23, anion gap of 13, BUN and creatinine 110 at 4.9, glucose of 601. LFTs unremarkable. Albumin of 2.9, total protein 6.8, lactic acid 1.0. ASSESSMENT AND PLAN: Leukocytosis, in a patient that certainly is under significant distress. I cannot entirely exclude pneumonitis. She had to be covered the next 24 hours with the dosing of the antibiotics and we will see how she does clinically. I am not inclined to favor the source of infection being the wounds at this point, although they will be covered as well. I do not think [address] [address] CONSULTATION Name: MARILUZ BARBOZA Room: [address] IN M.R.#: [id number] Admission: 11/16/19 Attend Phys: Billie [place] Discharge: Date of : 53 Report #: [id number] there is anything to culture per se. At some point, may benefit from debridement, but given what appears to be a significant arterial occlusive disease, approach is problematic. <ELECTRONICALLY SIGNED> By: Jarvis Marina MD 11/17/19 0815 1428 01Jarvis Marina MD /nt
--- NOTE | 2019-11-17 12:40 | NUR ---
ICU rounds: Possible for pt to dc soon. Pt lives with . Pt has history of refusing HH or SNF. Dialysis [facility]. SW/CM to remain available to assist with safe dc planning if needs arise.
--- NOTE | 2019-11-17 15:09 | NUR ---
THIS COMIC ILLUSTRATOR ASSUMED CARE OF PT AT 0700 PT IS PROGRESSING TOWARD GOALS BY RECEIVING TELEY ORDER PT IS NONCOMPLIANT AT TIME WANTS THINGS TO BE ON HER TIME SUCH MEDICINE INSULIN HOW MUCH PT REFUSED LANTUS OVERNIGHT THE NOON DOSE OF LISPRO WAS HELD DO TO DIALYSIS AND NOT EATING LUNCH SUGAR WAS 287 PT TRIED HIDING ISOSORBIDE STATED SHE WANTED TO TAKE IT AT ANOTHER TIME AFTER DIALYSIS PT WILL BE TRANSFERRED TO ROOM 211 THE NURSE WILL BE MELISA
--- NOTE | 2019-11-17 17:33 | NUR ---
PT WAS TRANSFERED TO ROOM 211. THIS EXPORT ADMINISTRATOR TRANSPORTED PT TO DIALYSIS AT NOON PT WAS OFF UNIT AND TRANSPORTED TO NEW ROOM AT 1700 VIA WHEELCHAIR WITH NURSING STAFF ALL PT BELONGING INCLDUING MEDS PACKED AND SENT TO NEW ROOM GAVE REPORT TO MELISA
--- NOTE | 2019-11-17 19:35 | NUR ---
PT TRANSFERED TO ROOM 211 AT APPROX 1730, PT A/O X4, SOFT SPOKEN, STATES HER STOMACH HURTS "FROM THE ORANGE JUICE I HAD EARLIER". PTS BS CHECKED PROVIDED HER WITH PB AND CRACKERS. PT HAD INSULIN. LUND REMOVED. PTS FAMILY AT BEDSIDE. REPORT GIVEN TO AGUEDA RAYO.
[2019-11-18] VITALS: BP 143/60
[2019-11-18 04:00] VITALS: BP 155/67
[2019-11-18 05:39] LABS: ABSOLUTE BASOPHILS 0.1 thou/uL (0.0-0.2); ABSOLUTE EOSINOPHILS 0.1 thou/uL (0.0-0.7); ABSOLUTE LYMPHOCYTES 1.4 thou/uL (0.8-5.3); ABSOLUTE MONOCYTES 1.1 thou/uL (0.0-1.2); ABSOLUTE NEUTROPHILS 6.6 thou/uL (1.6-8.1); BASOPHILS 0.6 %; EOSINOPHILS 1.5 %; HEMATOCRIT 28.5 % (37.0-47.0); HEMOGLOBIN 9.7 gm/dL (12.0-15.0); LYMPHOCYTES 15.2 %; MCH 29.9 pg (26.0-34.0); MCHC 33.9 g/dL (28.0-37.0); MCV 88.1 fL (80.0-100.0); MONOCYTES 12.2 %; MPV 7.3 fl. (7.2-11.1); NUCLEATED RBCS 0 /100WBC; PLATELET COUNT* 244 thou/uL (150-400); POLYS 70.5 %; RBC 3.24 mil/uL (4.20-5.00); RDW-CV 12.4 % (10.5-14.5); WBC 9.3 thou/uL (4.0-11.0)
[2019-11-18 05:54] LABS: ALBUMIN 2.6 g/dL (3.4-5.0); CALCIUM 7.8 mg/dL (8.5-10.1); POTASSIUM 4.3 mmol/L (3.5-5.1); TOTAL BILIRUBIN 0.1 mg/dL (<0.1-1.0); TOTAL PROTEIN 6.5 g/dL (6.4-8.2)
--- NOTE | 2019-11-18 05:59 | NUR ---
Shift uneventful. Pt medically stable at this time. Pt is aox4, v-paced on telemetry, and on 3L NC.
[2019-11-18 08:00] VITALS: BP 139/85
--- NOTE | 2019-11-18 08:51 | CON ---
[address] [address] CONSULTATION Name: MARILUZ BARBOZA Room: [address] IN M.R.#: [id number] Admission: 11/16/19 Attend Phys: Billie Felipe Discharge: Date of : 53 Report #: [id number] THIS REPORT FOR: //name// cc: BERNABE Calzada family physician/PCP BERNABE Calzada family physician/PCP ~ THIS REPORT FOR: //name// CC: BERNABE physician/PCP Billie Escudero DATE OF SERVICE: 11/16/2019 REASON FOR CONSULTATION: Assist in providing dialysis. HISTORY OF PRESENT ILLNESS: The patient is a 64-year-old female with medical history significant for end-stage renal disease, normally dialyzes at [facility] on Wednesday, , Wednesday. She missed her dialysis yesterday because of diarrhea. So, her last dialysis was on Wednesday 5 days ago. She presents with respiratory failure. PAST MEDICAL HISTORY: 1. End-stage renal disease. 2. History of pulmonary emboli in the past. 3. Cardiomyopathy. 4. Diabetes mellitus type 2. 5. She also has history of coronary artery disease, status post bypass graft surgery in the past. 6. History of hepatitis. 7. History of placement of the pacemaker. SOCIAL HISTORY: No tobacco, no alcohol abuse. REVIEW OF SYSTEMS: Unobtainable due to her mental status. FAMILY HISTORY: Noncontributory. PHYSICAL EXAMINATION: GENERAL: In Intensive Care Unit. HEENT: Pupils are round. NECK: Fatty. LUNGS: Decreased air movements. No crackles at both bases. CARDIOVASCULAR: Distant heart tones. ABDOMEN: Soft, obese. EXTREMITIES: Lower extremities with 2+ edema. DIAGNOSTIC IMAGING: Chest x-ray revealed [place] [address] CONSULTATION Name: MARILUZ BARBOZA Room: [address]#: [id number] Admission: 11/16/19 Attend Phys: Billie Felipe Discharge: Date of : 53 Report #: [id number] pneumonia in the right lower lobe and also possible pneumonia left lower lobe. ASSESSMENT: 1. End-stage renal disease. 2. Bibasilar pneumonia. 3. Respiratory failure due to pneumonia and fluid overload. 4. Diabetes mellitus type 2. PLAN: 1. Dialysis today and tomorrow. 2. Antibiotics per primary care team. <ELECTRONICALLY SIGNED> By: Jagdish Washington MD 11/18/19 0851 1124 1258Ailda Washington MD /nt
[2019-11-18 12:00] VITALS: BP 128/56
[2019-11-18 14:30] VITALS: BP 149/67
--- NOTE | 2019-11-18 17:52 | NUR ---
ASSUMED CARE AT 0730. ALERT ORIENTED PLEASANT COOPERATIVE. HX OF SOA HEAR FAILURE. 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 ASSISTING WITH CARES. TRANSFERS SBA WALKER TO BR X 2 VOIDED. HX OF BILATERAL CELLULITIS. ULCER RT. HEEL. BEEN SITTING IN RECLINER BY WINDOW MOST OF THE DAY. O2 ON AT 3.0 L/ M PER N/C PT. TAKES IT OFF AT TIMES REQUESTED O2 SAT CHECK WHILE OFF 93%. IV SL X 2 L HAND AND AC RECEIVED VANCOMYCIN IV X 1 DOSE AND LEVOFLOXACIN PO X 1 DOSE. DENIES PAIN.
[2019-11-18 20:00] VITALS: BP 167/78
[2019-11-19] VITALS: BP 152/92
[2019-11-19 04:00] VITALS: BP 143/65
--- NOTE | 2019-11-19 06:32 | NUR ---
Shift uneventful. Pt is medically stable at this time. Pt is aox4, v-paced on telemetry, respirations are even and unlabored on 3L O2 NC.
[2019-11-19 07:30] LABS: GLYCOHEMOGLOBIN (HGB A1C) 10.5 % (4.8-5.6)
[2019-11-19 08:00] VITALS: BP 154/71
[2019-11-19 11:59] VITALS: BP 140/61
[2019-11-19 15:57] VITALS: BP 139/61
--- NOTE | 2019-11-19 17:08 | NUR ---
PT ASSESSMENT CHARTED. VSS THROUGHOUT SHIFT. NO COMPLAINTS OF PAIN. UP WITH ASSISTANCE IN ROOM. PT REMAINS ON 3L NC WITH NO SIGNS OF RESP DISTRESS. BS WELL CONTROLLED ON SLIDING SCALE. NO OTHER COMPLAINTS.
[2019-11-19 20:00] VITALS: BP 150/68
[2019-11-20 00:30] VITALS: BP 149/70
[2019-11-20 04:00] VITALS: BP 130/58
--- NOTE | 2019-11-20 07:58 | NUR ---
Shift uneventful. Pt is medically stable at this time. Pt is aox4, v-paced on telemetry, and respirations are even and unlabored on 3L NC.
[2019-11-20 08:15] VITALS: BP 147/69
[2019-11-20] MEDS ORDERED: LANTUS100 UNIT/M SUBQ (08:51)
--- NOTE | 2019-11-20 10:18 | NUR ---
ASSUMED CARE OF PT AT 0730. PT SITTING IN RECLINER- AT BEDSIDE. PT A&0X4, COMPLAINS OF ABDOMINAL DISCOMFORT. TREATED WITH PRN ZOFRAN WITH RELIEF. PT DENIES ANY SHORTNESS OF BREATH. ON 3L NC SAT 97%. PT STATES SHE WEARS AT HOME WELL. TRACING SR ON THE PROFESSIONAL FIGHTER. PT UP WITH 1 ASSIST AND WALKER TO BATHROOM. DR ZEPEDA HERE TO SEE PT. ORDERS RECEIVED FOR HEMODIALYSIS THIS AFTERNOON AND DISCHARGE PLANNING TO HOME AFTER. AM ASSESSMENT CHARTED. MEDICATIONS PER NOV. PT REPOSITIONS SELF WITH REMINDERS. HOURLY ROUNDING OBSERVED, BED IN LOW POSITION. CALL LIGHT WITHIN REACH. WILL CONTINUE PLAN OF CARE.
--- NOTE | 2019-11-20 12:22 | NUR ---
PT ORDERS RECEIVED AND ACKNOWLEDGED. PT WITH SPOUSE IN ROOM. PT AND SPOUSE INDICATE PT IS ESSENTIALLY AT BASELINE STATUS AND DO NOT FEEL PT SERVICES ARE INDICATED AT THIS TIME. PT AND SPOUSE INDICATE NO DME CONCERNS. WILL DISCHARGE PT SERVICES AT THIS TIME PER PT REQUEST.
[2019-11-20 12:39] VITALS: BP 156/69
--- NOTE | 2019-11-20 13:42 | NUR ---
CHF DISCHARGE MEDICATION EDUCATION: FAMILY WAS GIVEN A MEDICATION EDUCATION HANDOUT. THE MEDICATIONS CARVEDIOLOL AND FUROSEMIDE WERE DISCUSSED REGARDING HOW TO TAKE, SIDE EFFECTS, AND HOW IT WORKS. ALL QUESTIONS AND CONCERNS WERE ADDRESSED. THANK YOU.
--- NOTE | 2019-11-20 14:17 | NUR ---
Plan dc to home post dialysis, CM to fax flowsheets tomorrow
--- NOTE | 2019-11-20 15:20 | NUR ---
WOUND NURSE: UNABLE TO ASSESS PATIENT D/T IN DIALYSIS. WILL ATTEMPT TO SEE TOMORROW.
[2019-11-20 17:35] VITALS: BP 153/71
--- NOTE | 2019-11-20 18:37 | NUR ---
DISCHARGE ORDERS RECEIVED. DISCHARGE INSTRUCTIONS, CARE NOTES AND FOLLOW UP APPTS GIVEN TO PT. PT AND PT COMMUNICATE UNDERSTANDING OF DISCHARGE TEACHING. IV AND TECHNICAL MANAGER REMOVED. DISCHARGE WOUND PHOTO TAKEN AND PLACED IN PROGRESS NOTES. PT DISCHARGED WITH ALL BELONGINGS AND PAPERWORK VIA WHEELCHAIR WITH NURSING STAFF TO SPOUSE OWN PERSONAL VEHICLE.
== END 2019-11-20 18:37 | disposition home or self-care (01) | DRG 177 ==
LOC: M.ERS 00:24 → M.ICU 03:54 → M.TBA-ER 03:54 → M.2W 03:54 → M.ICU 06:47 → M.2W 11-17 12:57
PROVIDERS: Emergency Medicine; Internal Medicine; Internal Medicine Pulmonary Disease; ADMIT Family Medicine
PROC: 5A09357 Assistance with Respiratory Ventilation, Less than 24 Consecutive Hours, Continuous Positive Airway Pressure (ICD-10-PCS; principal; 2019-11-16)
PROC: 5A1D70Z Performance of Urinary Filtration, Intermittent, Less than 6 Hours Per Day (ICD-10-PCS; 2019-11-20)
DX: J69.0 Pneumonitis due to inhalation of food and vomit (principal); N18.6 End stage renal disease; J96.21 Acute and chronic respiratory failure with hypoxia; J96.22 Acute and chronic respiratory failure with hypercapnia; E87.2 Acidosis; I13.2 Hypertensive heart and chronic kidney disease with heart failure and with stage 5 chronic kidney disease, or end stage renal disease; I25.10 Atherosclerotic heart disease of native coronary artery without angina pectoris; E87.70 Fluid overload, unspecified; I50.9 Heart failure, unspecified; E11.65 Type 2 diabetes mellitus with hyperglycemia; I25.5 Ischemic cardiomyopathy; Z86.711 Personal history of pulmonary embolism; Z95.1 Presence of aortocoronary bypass graft; Z90.710 Acquired absence of both cervix and uterus; Z90.49 Acquired absence of other specified parts of digestive tract; Z88.6 Allergy status to analgesic agent; Z88.1 Allergy status to other antibiotic agents; Z88.0 Allergy status to penicillin; Z88.2 Allergy status to sulfonamides; Z88.8 Allergy status to other drugs, medicaments and biological substances; Z91.19 Patient's noncompliance with other medical treatment and regimen; Z99.2 Dependence on renal dialysis

== ENCOUNTER 2019-12-04 16:02 | Inpatient (IN) | payer MEDICAID ==
[~2019-12-04] VITALS: Ht 170.2 cm; Wt 72.6 kg
[2019-12-04 16:24] VITALS: BP 172/84
[2019-12-04 17:03] LABS: URINE BILIRUBIN NEGATIVE (Negative); URINE BLOOD 2+ (Negative); URINE CLARITY CLEAR; URINE COLOR YELLOW; URINE GLUCOSE-RANDOM 1+ (Negative); URINE KETONES NEGATIVE (Negative); URINE LEUKOCYTES-REFLEX NEGATIVE (Negative); URINE NITRITE-REFLEX NEGATIVE (Negative); URINE PROTEIN 3+ (Negative); URINE UROBILINOGEN 0.2 E.U./dl (0.2-1.0)
[2019-12-04 17:17] LABS: CASTS None Seen /LPF (None Seen); SQUAMOUS >10 Many /LPF (0-3); URINE RBC 3-10 Few /HPF (0-2); URINE WBC-REFLEX 6-15 Few /HPF (0-5)
[2019-12-04 17:18] LABS: CRYSTALS None Seen /LPF (None Seen)
[2019-12-04 17:23] LABS: INFLUENZA A ANTIGEN Negative (Negative); INFLUENZA B ANTIGEN Negative (Negative)
[2019-12-04 17:33] LABS: ABSOLUTE BASOPHILS 0.1 thou/uL (0.0-0.2); ABSOLUTE EOSINOPHILS 0.1 thou/uL (0.0-0.7); ABSOLUTE LYMPHOCYTES 1.2 thou/uL (0.8-5.3); ABSOLUTE MONOCYTES 0.7 thou/uL (0.0-1.2); ABSOLUTE NEUTROPHILS 5.3 thou/uL (1.6-8.1); BASOPHILS 0.8 %; EOSINOPHILS 1.8 %; HEMATOCRIT 27.7 % (37.0-47.0); HEMOGLOBIN 9.4 gm/dL (12.0-15.0); LYMPHOCYTES 16.5 %; MCH 29.6 pg (26.0-34.0); MCHC 33.8 g/dL (28.0-37.0); MCV 87.5 fL (80.0-100.0); MONOCYTES 9.4 %; MPV 7.5 fl. (7.2-11.1); NUCLEATED RBCS 0 /100WBC; PLATELET COUNT* 236 thou/uL (150-400); POLYS 71.5 %; RBC 3.16 mil/uL (4.20-5.00); RDW-CV 12.6 % (10.5-14.5); WBC 7.4 thou/uL (4.0-11.0)
[2019-12-04 17:40] LABS: CALCIUM 8.5 mg/dL (8.5-10.1); CREATININE 5.1 mg/dL (0.6-1.3); POTASSIUM 4.9 mmol/L (3.5-5.1)
[2019-12-04 17:50] LABS: ALBUMIN 3.2 g/dL (3.4-5.0); TOTAL BILIRUBIN 0.2 mg/dL (<0.1-1.0)
[2019-12-04 22:13] VITALS: BP 187/91
[2019-12-04 22:30] VITALS: BP 175/77
[2019-12-05 04:21] VITALS: BP 144/63
--- NOTE | 2019-12-05 05:00 | NUR ---
PT ADMITTED TO FLOOR AT 2200. PT IS BLIND AND REQUIRES EXTRA ASSISTANCE AND OREINTATION TO HER SURROUNDINGS. PT WAS MOVED FROM HER PRIOR ROOM TO A NEW ROOM CLOSE TO THE NURSES STATION FOR SAFETY. NO C/O PAIN OR DISCOMFORT NOTED BY PT. ASSESSMENT COMPLETED CHARTED, MEDICATIONS ADMINISTERED PER MAR. CURRENTLY UP IN RECLINER PT REQUEST TO SLEEP THERE. PT WAS UPSET AND WAS TALKING ABOUT LEAVING AMA OLIUE WAS NOT ABLE TO STAY WITH HER.
[2019-12-05 06:24] LABS: ABSOLUTE BASOPHILS 0.1 thou/uL (0.0-0.2); ABSOLUTE EOSINOPHILS 0.1 thou/uL (0.0-0.7); ABSOLUTE LYMPHOCYTES 0.8 thou/uL (0.8-5.3); ABSOLUTE MONOCYTES 0.9 thou/uL (0.0-1.2); ABSOLUTE NEUTROPHILS 6.4 thou/uL (1.6-8.1); BASOPHILS 0.6 %; EOSINOPHILS 1.5 %; HEMATOCRIT 28.1 % (37.0-47.0); HEMOGLOBIN 9.6 gm/dL (12.0-15.0); LYMPHOCYTES 9.5 %; MCH 29.8 pg (26.0-34.0); MCHC 34.2 g/dL (28.0-37.0); MCV 87.1 fL (80.0-100.0); MONOCYTES 10.9 %; MPV 7.8 fl. (7.2-11.1); NUCLEATED RBCS 0 /100WBC; PLATELET COUNT* 228 thou/uL (150-400); POLYS 77.5 %; RBC 3.22 mil/uL (4.20-5.00); RDW-CV 12.6 % (10.5-14.5); WBC 8.3 thou/uL (4.0-11.0)
[2019-12-05 06:42] LABS: CALCIUM 8.2 mg/dL (8.5-10.1); CREATININE 5.1 mg/dL (0.6-1.3); POTASSIUM 5.4 mmol/L (3.5-5.1)
[2019-12-05 08:00] VITALS: BP 157/71
--- NOTE | 2019-12-05 12:43 | EKG ---
[place] [address] ELECTROCARDIOGRAM REPORT Name: MARILUZ BARBOZA Room: [address] ADM IN M.R.#: [id number] Admission: 12/04/19 Attend Phys: Virgilio Cheney, Discharge: Date of : 53 Date of Service: 12/04/19 1731 Report #: [id number] THIS REPORT FOR: //name// [facility] ED Test Date: 2019-12-04 Test Time: 17:31:31 Pat Name: MARILUZ BARBOZA Department: Room: [facility] Gender: F Rn Case Management: UNKNOWN : 1955 Requested By: Loy Cooper Order Number: [id number] MD: Lonny Silva Measurements Intervals [place] Rate: 78 P: 63 OR: 154 QRS: -37 QRSD: 133 T: 126 QT: 427 QTc: 487 Interpretive Statements Pacemaker spikes or artifacts Sinus rhythm left axis Left atrial enlargement LEFT VENTRICULAR HYPERTROPHY with repolarization Compared to ECG 11/16/2019 00:30:03 rate has slowed Electronically Signed On 12-05-2019 12:42:27 CDT by Lonny Silva [email or web address] <ELECTRONICALLY SIGNED> By: Lonny Silva MD, FAC 12/05/19 1242 1731 1731 Lonny Silva MD, FAC /EPI
[2019-12-05 16:00] VITALS: BP 174/88
[2019-12-05 20:15] VITALS: BP 182/89
[2019-12-05 21:42] VITALS: BP 182/89
--- NOTE | 2019-12-06 00:27 | NUR ---
RECEIVED REPORT AND ASSUMED CARE AT 1900. CARDIAC MONITORING IN PLACE. PT DENIES COMPLAINTS OF PAIN. ASSESSMENT COMPLETED CHARTED. BED LOCKED IN LOWEST POSITION. CALL LIGHT WITHIN REACH. PT IN RECLINER WITH CHAIR ALARM IN PLACE. PT REPORTING WANTING TO LEAVE AMA. PT EDUCATED ON RISK OF LEAVING BEFORE BEING CLEARED MEDICALLY BY PHYSICIAN. PT VERBALIZED UNDERSTANDING. AMA PAPERWORK SIGNED. PHYSICIAN NOTIFIED. IV AND CARDIAC MONITORING DISCONTINUED. PT COMING TO MANAGER LSW PATIENT. PT WITH N[address] TRANSPORTED BY NURSING STAFF TO ER ENTRANCE DRIVE THROUGH AT 4613. PT LEFT IN PERSONAL VEHICLE WITH SPOUSE.
--- NOTE | 2019-12-06 11:32 | CON ---
[address] [address] CONSULTATION Name: MARILUZ BARBOZA Room: [address] IN M.R.#: [id number] Admission: 12/04/19 Attend Phys: Virgilio Cheney MD Discharge: 12/05/19 Date of : 53 Report #: [id number] THIS REPORT FOR: //name// cc: Asya Rojo Stephanie P. DO ~ THIS REPORT FOR: //name// CC: Virgilio Rojo DATE OF SERVICE: 12/05/2019 ATTENDING PHYSICIAN: Virgilio Cheney MD REASON FOR EVALUATION: Febrile illness with cough, also in setting of end-stage renal disease. HISTORY OF PRESENT ILLNESS: Chart reviewed, the patient examined. This is a 64-year-old known to myself, who was actually hospitalized in latter part of October of this year with suspected pneumonitis. She had presented with encephalopathy and respiratory failure. It is notable she is a dialysis patient, had missed dialysis as well. Evaluation was particularly revealing blood cultures were all that was available and those were sterile. She had presented to the dialysis unit, was noted to have some fevers and cough and then she was referred to [place] for possible evaluation of the COVID-19. She is seen in isolation. She is not particularly engaged at this point. She is sitting up head leaning over, which is similar to previous. Denies significant dyspnea. At this point, has occasional cough. Remains quite weak. Evaluation in progress. Thus far, negative Rapid Strep. Urinalysis showed 6-15 white cells. Influenza antigen was negative. Actually has a total lymphocyte count of 1200. Chest x-ray showed cardiomegaly, patchy left lower lobe atelectasis, pneumonitis with a lactic acid of 0.9. She was started empirically on antibacterial with azithromycin and vancomycin. Cultures in progress. ALLERGIES: Include PENICILLIN, CEPHALOSPORINS, SULFA, STATINS, CLINDAMYCIN, QUINOLONES, PRAVASTATIN, METFORMIN, INSULIN DETEMIR, CODEINE. PAST MEDICAL HISTORY: As noted above, end-stage renal disease, diabetes mellitus complicated by vasculopathy, has known atherosclerotic coronary disease to previous aortocoronary bypass grafting, cardiomyopathy, previous chronic hepatitis. She is blind as well. SOCIAL HISTORY: Nonsmoker. No ethanol. No illicit drug use. FAMILY HISTORY: [place] [address] CONSULTATION Name: MARILUZ BARBOZA Room: [address]#: [id number] Admission: 12/04/19 Attend Phys: Virgilio Cheney MD Discharge: 12/05/19 Date of : 53 Report #: [id number] REVIEW OF SYSTEMS: Somewhat limited due to her lack of engagement. Apparently, denies any significant pain or GI-related discomfort. PHYSICAL EXAMINATION: GENERAL: She is chronically ill appearing. She is pale, depressed affect. She is not overtly distressed. VITAL SIGNS: Temperature 98.3, pulse 70, respirations 18, blood pressure 144/63. SKIN: Warm, dry, no rashes. HEENT: Head is leaning forward. Her neck presumably is supple. She does not make eye contact. LUNGS: Diminished breath sounds. Few scattered crackles at the bases. HEART: Regular, has a systolic murmur. I do not appreciate a significant ectopy. ABDOMEN: Soft, nontender. There are no peritoneal signs. GENITOURINARY AND RECTAL: Deferred. LABORATORY DATA: Blood cultures are sterile thus far from yesterday. Procalcitonin 0.2. Recent electrolytes from this morning: Sodium 137, potassium 5.4, chloride 101, bicarb is 24, anion gap of 12, BUN and creatinine 115/5.1. CBC: White count of 8.3, H and H 9.6 and 28.1, platelets of 228. Chest x-ray as described above, patchy left lower lobe atelectasis, pneumonitis. Influenza antigen was negative. Urinalysis: Mild pyuria. ASSESSMENT: Low-grade fever with cough. The patient may have early pneumonitis, waiting COVID-19 results and will continue in isolation. Continue empiric therapy. Should have reasonable coverage for pathogens of a bacterial nature given her potential exposure to multiply resistant organisms. She has very little reserve clearly. We will monitor expectantly and give supportive care. <ELECTRONICALLY SIGNED> By: Jarvis Marina MD 12/06/19 1132 1317 15Jarvis Marina MD /nt
--- NOTE | 2019-12-07 11:35 | CON ---
[address] [address] CONSULTATION Name: MARILUZ BARBOZA Room: [address] IN .R.#: [id number] Admission: 12/04/19 Attend Phys: Virgilio Cheney MD Discharge: 12/05/19 Date of : 53 Report #: [id number] THIS REPORT FOR: //name// cc: Asya Rojo Stephanie P. DO ~ THIS REPORT FOR: //name// CC: Virgilio Rojo DATE OF SERVICE: 12/05/2019 REQUESTING PHYSICIAN: Virgilio Cheney MD REASON FOR CONSULTATION: Assist in dialysis. HISTORY OF PRESENT ILLNESS: The patient is a 64-year-old female with medical history significant for end-stage renal disease, on dialysis Wednesday, Wednesday, and Wednesday schedule. She also has diabetes, blindness and history of recurrent pneumonia/bronchitis. She has a history of hypertension and anemia. She presented to her Dialysis Unit yesterday where she had some fever and cough, so she was referred to the hospital. Her COVID-19 test is pending. The patient's x-ray revealed presence of bilateral bibasilar pneumonia, left more than the right according to a chest x-ray that was read by Dr. Fernandez. FAMILY HISTORY: Noncontributory. SOCIAL HISTORY: No current tobacco or alcohol abuse. REVIEW OF SYSTEMS: Positive for cough and fever. MEDICATIONS: Prior to admission reviewed. PHYSICAL EXAMINATION: GENERAL: Awake, alert, oriented. VITAL SIGNS: Blood pressure 144/63, heart rate 78, temperature today is 36.8. NECK: Fatty. LUNGS: Decreased air movements. CARDIOVASCULAR: Regular rate. ABDOMEN: Soft, obese. LABORATORY DATA: Hemoglobin 9.6 and potassium is 5.4. ASSESSMENT: [place] [address] CONSULTATION Name: MARILUZ BARBOZA Room: [address]#: [id number] Admission: 12/04/19 Attend Phys: Virgilio Cheney MD Discharge: 12/05/19 Date of : 53 Report #: [id number] 1. End-stage renal disease. 2. Diabetes mellitus type 2. 3. Hypertension. 4. Anemia. 5. Pneumonia. PLAN: Dialysis today and we will do another dialysis tomorrow to put her back on her schedule. Labs will be followed. Potassium is slightly elevated. <ELECTRONICALLY SIGNED> By: Jagdish Washington MD 12/07/19 1135 1147 [id number] Washington MD /GAYLE
== END 2019-12-05 23:43 | disposition left against medical advice (07) | DRG 193 ==
LOC: M.ERS 16:02 → M.TBA-ER 17:42 → M.2W 17:42
PROVIDERS: Emergency Medicine; ADMIT Internal Medicine
PROC: 5A1D70Z Performance of Urinary Filtration, Intermittent, Less than 6 Hours Per Day (ICD-10-PCS; principal; 2019-12-05)
DX: J18.9 Pneumonia, unspecified organism (principal); N18.6 End stage renal disease; I13.2 Hypertensive heart and chronic kidney disease with heart failure and with stage 5 chronic kidney disease, or end stage renal disease; Z53.29 Procedure and treatment not carried out because of patient's decision for other reasons; I50.9 Heart failure, unspecified; E11.22 Type 2 diabetes mellitus with diabetic chronic kidney disease; D64.9 Anemia, unspecified; Z79.82 Long term (current) use of aspirin; Z79.4 Long term (current) use of insulin; Z88.1 Allergy status to other antibiotic agents; Z88.5 Allergy status to narcotic agent; Z88.0 Allergy status to penicillin; Z88.2 Allergy status to sulfonamides; Z88.8 Allergy status to other drugs, medicaments and biological substances; Z90.49 Acquired absence of other specified parts of digestive tract; Z95.1 Presence of aortocoronary bypass graft; Z90.710 Acquired absence of both cervix and uterus; Z95.0 Presence of cardiac pacemaker; Z99.2 Dependence on renal dialysis

== ENCOUNTER 2020-01-08 03:20 | Inpatient (IN) | payer MEDICAID ==
[~2020-01-08] VITALS: Ht 170.2 cm; Wt 120.7 kg
[2020-01-08 03:25] VITALS: BP 197/102
[2020-01-08] MEDS ORDERED: ATIVAN0.5 M1 PO (03:58)
[2020-01-08 03:59] LABS: BE -4.1 mmol/L (-2 to +3); PCO2 38.4 mmHg (35.0-45.0); PO2 109.6 mmHg (75.0-100.0); pH 7.355 (7.340-7.450)
[2020-01-08] MEDS ORDERED: DIALYVITE TABL1 EACH PO (03:59)
[2020-01-08 04:05] LABS: URINE BILIRUBIN NEGATIVE (Negative); URINE BLOOD 3+ (Negative); URINE CLARITY CLEAR; URINE COLOR YELLOW; URINE GLUCOSE-RANDOM 3+ (Negative); URINE KETONES NEGATIVE (Negative); URINE LEUKOCYTES-REFLEX NEGATIVE (Negative); URINE NITRITE-REFLEX NEGATIVE (Negative); URINE PROTEIN 3+ (Negative); URINE UROBILINOGEN 0.2 E.U./dl (0.2-1.0)
[2020-01-08 04:19] LABS: AMORPHOUS URATES Moderate /LPF (None Seen); CASTS None Seen /LPF (None Seen); MUCUS 4-6 Moderate strn/LPF (None Seen); SQUAMOUS 0-3 Few /LPF (0-3); URINE WBC-REFLEX 0-5 Rare /HPF (0-5)
[2020-01-08 04:45] LABS: ABSOLUTE BASOPHILS 0.1 thou/uL (0.0-0.2); ABSOLUTE EOSINOPHILS 0.1 thou/uL (0.0-0.7); ABSOLUTE LYMPHOCYTES 0.7 thou/uL (0.8-5.3); ABSOLUTE MONOCYTES 0.7 thou/uL (0.0-1.2); BASOPHILS 0.5 %; EOSINOPHILS 0.8 %; HEMOGLOBIN 10.2 gm/dL (12.0-15.0); LYMPHOCYTES 6.5 %; MCHC 33.9 g/dL (28.0-37.0); MCV 88.4 fL (80.0-100.0); MONOCYTES 6.2 %; MPV 8.2 fl. (7.2-11.1); NUCLEATED RBCS 0 /100WBC; PLATELET COUNT* 205 thou/uL (150-400); RDW-CV 12.6 % (10.5-14.5); WBC 10.5 thou/uL (4.0-11.0)
[2020-01-08 04:53] LABS: CALCIUM 7.7 mg/dL (8.5-10.1); CREATININE 5.4 mg/dL (0.6-1.3)
[2020-01-08 04:56] LABS: APTT 25.9 Seconds (25.0-31.3); PROTIME 10.6 Seconds (9.20-11.50)
[2020-01-08 05:04] LABS: ALBUMIN 3.4 g/dL (3.4-5.0); MAGNESIUM 2.4 mg/dL (1.8-2.4); TOTAL BILIRUBIN 0.2 mg/dL (<0.1-1.0); TOTAL PROTEIN 6.9 g/dL (6.4-8.2)
[2020-01-08 06:25] VITALS: BP 172/81
[2020-01-08 06:29] VITALS: BP 164/75
--- NOTE | 2020-01-08 11:38 | 2DMMODE ---
[place] [address] 2 D/M-MODE ECHOCARDIOGRAM Name: MARILUZ BARBOZA Room: [address] IN [facility]#: [id number] Admission: 01/08/20 Attend Phys: Virgilio Cheney, Discharge: Date of : 53 Date of Service: 01/08/20 1136 Report #: [id number] THIS REPORT FOR: cc: Asya Rojo Stephanie P. DO Blick, David R. MD [facility] ~ APPROVED REPORT Study performed: 01/08/2020 09:56:52 EXAM: Comprehensive 2D, Doppler, and color-flow Echocardiogram Patient Location: In-Patient Room #: 212 Status: routine BSA: 1.89 HR: 70 bpm BP: 164/75 mmHg Rhythm: NSR Other Information Study Quality: Good Indications Dyspnea 2D Dimensions IVSd: 14.54 (7-11mm) LVOT Diam: 20.65 (18-24mm) LVDd: 56.04 mm PWd: 10.84 (7-11mm) Ascending Ao: 34.68 (22-36mm) LVDs: 52.95 (25-40mm) Aortic Root: 32.63 mm Volumes Left Atrial Volume (Systole) LA ESV Index: 44.50 mL/m2 Aortic Valve AoV Peak Ney.: 2.17 m/s AO Peak Gr.: 18.83 mmHg LVOT Max P.02 mmHg AO Mean Gr.: 10.35 mmHg LVOT Mean P.99 mmHg LVOT Max V: 1.32 m/s AO V2 VTI: 43.92 cm LVOT Mean V: 0.76 m/s LISETH (VTI): 2.10 cm2 LVOT V1 VTI: 27.59 [place] [address] 2 D/M-MODE ECHOCARDIOGRAM Name: MARILUZ BARBOZA LOU Room: [address] IN .R.#: [id number] Admission: 01/08/20 Attend Phys: Virgilio Cheney, Discharge: Date of : 53 Date of Service: 01/08/20 1136 Report #: [id number] Mitral Valve E/A Ratio: 0.86 MV Decel. Time: 207.19 ms MV E Max Ney.: 0.90 m/s MV PHT: 60.09 ms MVA (PHT): 3.66 cm2 TDI E/Lateral E': 10.00 E/Medial E': 18.00 Medial E' Ney.: 0.05 m/s Lateral E' Ney.: 0.09 m/s Pulmonary Valve PV Peak Ney.: 1.43 m/s PV Peak Gr.: 8.14 mmHg Tricuspid Valve RAP Estimate: 15.00 mmHg TR Peak Gr.: 34.42 mmHg RVSP: 49.00 mmHg PA Pressure: 49.00 mmHg Left Ventricle Left ventricle is at the upper limits of normal. There is global hypokinesis of the left ventricle. There is normal left ventricular wall thickness. Left ventricular systolic function is severely decreased. LVEF is 25-30%. Grade I - abnormal relaxation pattern. Right Ventricle The right ventricle is normal size. The right ventricular systolic function is normal. Pacemaker lead is present in the right ventricle. Atria Left atrium is moderately dilated. The right atrium size is normal. Aortic Valve Mild aortic valve sclerosis. No aortic regurgitation is present. There is no aortic valvular stenosis. Mitral Valve The mitral valve is normal in structure. Mild mitral regurgitation. No evidence of mitral valve stenosis. Tricuspid Valve The tricuspid valve is normal in structure. Trace [place]icus[place] [address] 2 D/M-MODE ECHOCARDIOGRAM Name: MARILUZ BARBOZA Room: [address] IN [facility]#: [id number] Admission: 01/08/20 Attend Phys: Virgilio Cheney, Discharge: Date of : 53 Date of Service: 01/08/20 1136 Report #: [id number] Pulmonic Valve The pulmonary valve is normal in structure. Trace pulmonic regurgitation. Great Vessels The aortic root is normal in size. IVC is dilated and collapses <50% with inspiration. Pericardium There is no pericardial effusion. <Conclusion> LVEF is 25-30%. Left atrium is moderately dilated. Mild aortic valve sclerosis. Mild mitral regurgitation. <ELECTRONICALLY SIGNED> By: Lonny Silva MD, FACC 01/08/20 1136 1136 1136 Lonny Silva MD, FACC /INF
[2020-01-08 12:00] VITALS: BP 150/67
[2020-01-08 12:35] LABS: BE -2.1 mmol/L (-2 to +3); PCO2 37.9 mmHg (35.0-45.0); PO2 123.5 mmHg (75.0-100.0); pH 7.392 (7.340-7.450)
--- NOTE | 2020-01-08 13:18 | EKG ---
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[place] : 1955 Requested By: Jillian Feldman Order Number: [id number] Cecilia MD: Lonny Silva Measurements Intervals Blount Rate: 99 P: VA: 181 QRS: -35 QRSD: 120 T: 126 QT: 389 QTc: 500 Interpretive Statements sinus rhythm left atrial enlargement left axis LEFT VENTRICULAR HYPERTROPHY with repolarization changes septal q waves Compared to ECG 12/04/2019 17:31:31 no change Electronically Signed On 01-08-2020 13:16:57 CDT by Lonny Silva [email or web address] <ELECTRONICALLY SIGNED> By: Lonny Silva MD, [facility] 01/08/20 1316 0335 0335 Lonny Silva MD, [facility] /EPI
--- NOTE | 2020-01-08 17:26 | CON ---
[address] [address] CONSULTATION Name: MARILUZ BARBOZA Room: [address] IN .R.#: [id number] Admission: 01/08/20 Attend Phys: Virgilio Cheney MD Discharge: Date of : 53 Report #: [id number] THIS REPORT FOR: //name// cc: Asya Rojo Stephanie P. DO ~ THIS REPORT FOR: //name// CC: Virgilio Rojo DATE OF SERVICE: 01/08/2020 CARDIOLOGY CONSULTATION HISTORY OF PRESENT ILLNESS: The patient is a 64-year-old white female who I was asked to see in the hospital today after she complained of being short of breath. The patient has an extensive and past medical history. She has had multiple hospitalizations here at [facility]. She has had previous coronary bypass surgery. She was admitted here in 02/2018 with shortness of breath and pneumonia. She had to be intubated. She was discharged to intermediate. She was admitted here in 06/2019 with chest pain. She ruled out for myocardial infarction. She has a history of blindness. She was here just a month ago with a fever. She actually left AMA. She was brought to the Emergency Room last night with shortness of breath. She was brought by paramedics and placed on CPAP. I was asked to see her for further evaluation and treatment. PAST MEDICAL HISTORY: Significant for coronary artery bypass surgery in 2018. She apparently has a defibrillator in place. She has end-stage renal disease, on dialysis. She has diabetes. MEDICATIONS: On admission includes insulin, carvedilol, Imdur, Lasix. ALLERGIES: SHE HAS AN ALLERGY TO CIPRO, CODEINE AND PENICILLIN. PHYSICAL EXAMINATION: GENERAL: Revealed an elderly female lying in bed. She was barely arousable on CPAP. VITAL SIGNS: She had a blood pressure of 160/70, pulse is 80, she is afebrile. HEENT: She is anicteric. Conjunctivae are pale. Mucous membranes dry. NECK: Veins do not appear distended. CHEST: Clear to auscultation. CARDIOVASCULAR: Regular rate and rhythm. ABDOMEN: Soft. EXTREMITIES: Had no edema. SKIN: Cool and dry. NEUROLOGIC: [place] [address] CONSULTATION Name: MARILUZ BARBOZA Room: [address]#: [id number] Admission: 01/08/20 Attend Phys: Virgilio Cheney MD Discharge: Date of : 53 Report #: [id number] RADIOLOGICAL DATA: Her ECG showed a sinus rhythm, left anterior fascicular block, evidence of previous anterior infarction, nonspecific T-wave changes. Her echocardiogram done earlier today showed an ejection fraction of 30%, left atrial enlargement, aortic sclerosis. Her chest x-ray today showed bilateral infiltrates consistent with pulmonary edema. She had an MRI of the head back in 2018 that showed an acoustic schwannoma, chronic changes. LABORATORY DATA: Sodium 137, potassium 6.0, creatinine 5.4, glucose 350. Liver function studies were normal. Troponin 0.71. BNP 20,175. White blood cell count 10.5, hemoglobin 10.2. IMPRESSION AND RECOMMENDATIONS: 1. Coronary artery disease. Suspect type 2 myocardial infarction. I would not recommend cardiac catheterization at this time. 2. Ischemic cardiomyopathy. The patient is on a beta shemar. I would consider adding Entresto. 3. End-stage renal disease, on hemodialysis. 4. Previous implantation of defibrillator. No recent discharges. 5. Diabetes. 6. Anemia. <ELECTRONICALLY SIGNED> By: Lonny Silva MD, FACC 01/08/20 1726 1229 [id number] Silva MD, FACC /nt
[2020-01-08 20:00] VITALS: BP 145/69
[2020-01-09] VITALS (7 sets, daily range): BP systolic 111–158; BP diastolic 47–71
[2020-01-09 06:49] LABS: CALCIUM 8.3 mg/dL (8.5-10.1); MAGNESIUM 2.2 mg/dL (1.8-2.4); POTASSIUM 4.7 mmol/L (3.5-5.1)
[2020-01-09 07:24] LABS: CREATININE 3.9 mg/dL (0.6-1.3)
[2020-01-09 07:27] LABS: TROPONIN-I LEVEL 0.86 ng/mL (<0.06)
[2020-01-10 04:00] VITALS: BP 159/79
[2020-01-10 08:00] VITALS: BP 154/76
[2020-01-10 08:10] VITALS: BP 154/76
[2020-01-10] MEDS ORDERED: ADULT LOW DOSE81 MG PO (09:13)
[2020-01-10] MEDS ORDERED: CLOPIDOGREL75 MG PO (09:13)
[2020-01-10] MEDS ORDERED: LASIX 40 MG TAB40 M2 PO (09:13)
[2020-01-10 10:38] LABS: HEMATOCRIT 28.9 % (37.0-47.0); HEMOGLOBIN 9.9 gm/dL (12.0-15.0); MCH 29.8 pg (26.0-34.0); MCHC 34.1 g/dL (28.0-37.0); MCV 87.5 fL (80.0-100.0); MPV 7.8 fl. (7.2-11.1); RBC 3.31 mil/uL (4.20-5.00); RDW-CV 12.8 % (10.5-14.5); WBC 6.8 thou/uL (4.0-11.0)
[2020-01-10 11:09] LABS: CALCIUM 8.5 mg/dL (8.5-10.1)
--- NOTE | 2020-01-11 12:46 | CON ---
[address] [address] CONSULTATION Name: MARILUZ BARBOZA Room: [address] IN .R.#: [id number] Admission: 01/08/20 Attend Phys: Virgilio Cheney MD Discharge: 01/10/20 Date of : 53 Report #: [id number] THIS REPORT FOR: //name// cc: Asya Rojo Stephanie P. DO ~ THIS REPORT FOR: //name// CC: Virgilio Rojo CONSULTING PHYSICIAN: Virgilio Cheney MD REASON FOR CONSULTATION: End-stage kidney disease. HISTORY OF PRESENT ILLNESS: A 64-year-old female with a history of end-stage kidney disease and noncompliance with dialysis, who occasionally misses dialysis treatments or cuts the dialysis treatments short by significant amount, is admitted with shortness of breath and x-ray evidence of pulmonary edema. She is currently on BiPAP and is somnolent, but easily arousable and able to answer questions. She is hoping to go home soon. She actually had dialysis as an inpatient on the and left AMA. Potassium was also noted to be elevated at 6. REVIEW OF SYSTEMS: Constitutional, psych, heme, eyes, ENT, respiratory, cardiac, GI, , endocrine, all negative except as documented above. PAST MEDICAL HISTORY: End-stage kidney disease, diabetes, coronary artery disease, history of CABG, history of CHF, pacemaker and defibrillator, diabetic retinopathy with blindness. SOCIAL HISTORY: No tobacco. FAMILY HISTORY: . PHYSICAL EXAMINATION: VITAL SIGNS: Blood pressure is 150/67, pulse 71, respirations 17, temperature 36.1. GENERAL: No acute distress. EYES: Blind. EARS: Externally normal. CARDIOVASCULAR: Regular rate. LUNGS: Diminished breath sounds. ABDOMEN: Soft. MUSCULOSKELETAL: Nontender. PSYCHIATRIC: Somnolent, awakens and is responsive. LABORATORY DATA: White cell count 10.5, hemoglobin 10.2, platelets [place] [address] CONSULTATION Name: MARILUZ BARBOZA Room: [address]#: [id number] Admission: 01/08/20 Attend Phys: Virgilio Cheney MD Discharge: 01/10/20 Date of : 53 Report #: [id number] 137, potassium 6, chloride 100, bicarbonate 25, BUN 109, creatinine 5.4, glucose 350, calcium 7.7, magnesium 2.4. ASSESSMENT: 1. End-stage kidney disease, hemodialysis Wednesday, Wednesday and Wednesday. 2. Hyperkalemia. 3. Diabetes. 4. Coronary artery disease. 5. Ischemic cardiomyopathy with an ejection fraction of 25-30%. 6. Pulmonary edema on chest x-ray, currently on BiPAP. PLAN: The patient will undergo dialysis today with a low potassium dialysate and we will remove fluid as tolerated. She has been noncompliant with her dialysis treatments in the past. Hopefully, with full dialysis treatment today, we will lead to improved hemodynamics and fluid removal to help lower her oxygen requirements. We will follow along with you. Thank you for requesting my opinion in the care and management of this patient. <ELECTRONICALLY SIGNED> By: David Sanchez MD 01/11/20 1246 1550 [id number] Sanchez MD /nt
== END 2020-01-10 14:17 | disposition home or self-care (01) | DRG 280 ==
LOC: M.ERS 03:20 → M.2W 04:33 → M.TBA-ER 04:33 → M.2W 06:12
PROVIDERS: Internal Medicine; Internal Medicine Nephrology; Personal Emergency Response Attendant; ADMIT Internal Medicine
DX: I21.4 Non-ST elevation (NSTEMI) myocardial infarction (principal); N18.6 End stage renal disease; J96.21 Acute and chronic respiratory failure with hypoxia; G92 Toxic encephalopathy; I50.23 Acute on chronic systolic (congestive) heart failure; E87.2 Acidosis; I13.2 Hypertensive heart and chronic kidney disease with heart failure and with stage 5 chronic kidney disease, or end stage renal disease; E11.319 Type 2 diabetes mellitus with unspecified diabetic retinopathy without macular edema; E11.22 Type 2 diabetes mellitus with diabetic chronic kidney disease; I25.5 Ischemic cardiomyopathy; D64.9 Anemia, unspecified; E87.5 Hyperkalemia; E11.65 Type 2 diabetes mellitus with hyperglycemia; I25.10 Atherosclerotic heart disease of native coronary artery without angina pectoris; Z95.0 Presence of cardiac pacemaker; Z90.710 Acquired absence of both cervix and uterus; Z95.1 Presence of aortocoronary bypass graft; Z90.49 Acquired absence of other specified parts of digestive tract; Z88.6 Allergy status to analgesic agent; Z88.1 Allergy status to other antibiotic agents; Z88.0 Allergy status to penicillin; Z88.2 Allergy status to sulfonamides; Z88.8 Allergy status to other drugs, medicaments and biological substances; Z91.19 Patient's noncompliance with other medical treatment and regimen

== ENCOUNTER 2020-04-28 18:09 | Emergency (ER) | payer MEDICARE, MEDICAID ==
[~2020-04-28] VITALS: Ht 170.2 cm; Wt 68.0 kg
[~2020-04-28 18:09] MED LIST changes: +ADULT LOW DOSE81 MG PO; +ATIVAN0.5 M1 PO; +CLOPIDOGREL75 MG PO; +DIALYVITE TABL1 EACH PO
[2020-04-28 18:19] VITALS: BP 155/73
== END 2020-04-28 19:08 | disposition home or self-care (01) ==
LOC: M.ERS 18:09
DX: R50.9 Fever, unspecified (principal); I50.9 Heart failure, unspecified; E11.22 Type 2 diabetes mellitus with diabetic chronic kidney disease; N18.6 End stage renal disease; Z20.828 Contact with and (suspected) exposure to other viral communicable diseases; Z90.710 Acquired absence of both cervix and uterus; Z90.49 Acquired absence of other specified parts of digestive tract; Z99.2 Dependence on renal dialysis; Z79.4 Long term (current) use of insulin; Z88.0 Allergy status to penicillin; Z88.1 Allergy status to other antibiotic agents; Z88.2 Allergy status to sulfonamides; Z88.6 Allergy status to analgesic agent; Z88.8 Allergy status to other drugs, medicaments and biological substances

== ENCOUNTER 2020-05-13 18:29 | Emergency (ER) | payer MEDICARE, MEDICAID ==
[~2020-05-13] VITALS: Ht 170.2 cm; Wt 69.8 kg
[2020-05-13 20:01] LABS: URINE BILIRUBIN NEGATIVE (Negative); URINE BLOOD 2+ (Negative); URINE CLARITY CLEAR; URINE COLOR YELLOW; URINE GLUCOSE-RANDOM 1+ (Negative); URINE KETONES NEGATIVE (Negative); URINE LEUKOCYTES-REFLEX NEGATIVE (Negative); URINE NITRITE-REFLEX NEGATIVE (Negative); URINE PROTEIN 3+ (Negative); URINE SPECIFIC GRAVITY 1.025 (1.005-1.030); URINE UROBILINOGEN 0.2 E.U./dl (0.2-1.0)
[2020-05-13 20:07] LABS: ABSOLUTE BASOPHILS 0.1 thou/uL (0.0-0.2); ABSOLUTE EOSINOPHILS 0.1 thou/uL (0.0-0.7); ABSOLUTE LYMPHOCYTES 1.3 thou/uL (0.8-5.3); ABSOLUTE MONOCYTES 0.9 thou/uL (0.0-1.2); ABSOLUTE NEUTROPHILS 6.4 thou/uL (1.6-8.1); BASOPHILS 0.7 %; EOSINOPHILS 1.5 %; HEMATOCRIT 31.8 % (37.0-47.0); HEMOGLOBIN 10.8 gm/dL (12.0-15.0); LYMPHOCYTES 15.1 %; MCH 30.8 pg (26.0-34.0); MCV 90.4 fL (80.0-100.0); MONOCYTES 10.4 %; MPV 7.5 fl. (7.2-11.1); NUCLEATED RBCS 0 /100WBC; PLATELET COUNT* 241 thou/uL (150-400); POLYS 72.3 %; RBC 3.52 mil/uL (4.20-5.00); WBC 8.9 thou/uL (4.0-11.0)
[2020-05-13 20:08] LABS: SQUAMOUS 4-10 Moderate /LPF (0-3)
[2020-05-13 20:09] LABS: BACTERIA-REFLEX >30 Many /HPF (None Seen); CASTS None Seen /LPF (None Seen); CRYSTALS None Seen /LPF (None Seen); MUCUS None Seen strn/LPF (None Seen); URINE RBC 3-10 Few /HPF (0-2); URINE WBC-REFLEX 0-5 Rare /HPF (0-5)
[2020-05-13 20:13] LABS: CALCIUM 8.4 mg/dL (8.5-10.1); CREATININE 6.8 mg/dL (0.6-1.3); POTASSIUM 5.5 mmol/L (3.5-5.1)
[2020-05-13 20:15] LABS: PROTIME 10.1 Seconds (9.20-11.50)
[2020-05-13 20:18] LABS: ALBUMIN 3.7 g/dL (3.4-5.0); TOTAL BILIRUBIN 0.3 mg/dL (<0.1-1.0); TOTAL PROTEIN 7.4 g/dL (6.4-8.2)
[2020-05-13] MEDS ORDERED: MACROBID 100 M100 M1 PO (21:19)
[2020-05-13 21:40] VITALS: BP 141/68
== END 2020-05-13 21:44 | disposition home or self-care (01) ==
LOC: M.ERS 18:29
PROVIDERS: Emergency Medicine
DX: N39.0 Urinary tract infection, site not specified (principal); E87.5 Hyperkalemia; Z20.828 Contact with and (suspected) exposure to other viral communicable diseases; E11.22 Type 2 diabetes mellitus with diabetic chronic kidney disease; N18.6 End stage renal disease; I50.9 Heart failure, unspecified; E11.319 Type 2 diabetes mellitus with unspecified diabetic retinopathy without macular edema; Z88.1 Allergy status to other antibiotic agents; Z95.1 Presence of aortocoronary bypass graft; Z88.5 Allergy status to narcotic agent; Z90.710 Acquired absence of both cervix and uterus; Z88.2 Allergy status to sulfonamides; Z88.8 Allergy status to other drugs, medicaments and biological substances; Z99.2 Dependence on renal dialysis; Z90.49 Acquired absence of other specified parts of digestive tract; Z88.0 Allergy status to penicillin; Z79.4 Long term (current) use of insulin

== ENCOUNTER 2020-05-23 20:36 | Emergency (ER) | payer MEDICARE, MEDICAID ==
[~2020-05-23] VITALS: Ht 170.2 cm; Wt 69.8 kg
[~2020-05-23 20:36] MED LIST changes: +MACROBID 100 M100 M1 PO
[2020-05-23 21:59] LABS: URINE BILIRUBIN NEGATIVE (Negative); URINE BLOOD 2+ (Negative); URINE CLARITY CLEAR; URINE COLOR YELLOW; URINE GLUCOSE-RANDOM TRACE (Negative); URINE KETONES NEGATIVE (Negative); URINE LEUKOCYTES-REFLEX TRACE (Negative); URINE NITRITE-REFLEX NEGATIVE (Negative); URINE PROTEIN 3+ (Negative); URINE SPECIFIC GRAVITY >= 1.030 (1.005-1.030); URINE UROBILINOGEN 0.2 E.U./dl (0.2-1.0)
[2020-05-23 22:08] LABS: BACTERIA-REFLEX 1-9 Few /HPF (None Seen); HYALINE CASTS 0-3 Few /LPF (None Seen); SQUAMOUS >10 Many /LPF (0-3); URINE RBC 3-10 Few /HPF (0-2); URINE WBC-REFLEX 6-15 Few /HPF (0-5)
[2020-05-23 22:09] LABS: CRYSTALS None Seen /LPF (None Seen); MUCUS None Seen strn/LPF (None Seen)
[2020-05-23 22:46] VITALS: BP 140/61
== END 2020-05-23 22:48 | disposition home or self-care (01) ==
LOC: M.ERS 20:36
PROVIDERS: Emergency Medicine
DX: R60.0 Localized edema (principal); Z20.828 Contact with and (suspected) exposure to other viral communicable diseases; E11.22 Type 2 diabetes mellitus with diabetic chronic kidney disease; N18.6 End stage renal disease; Z99.2 Dependence on renal dialysis; Z88.0 Allergy status to penicillin; Z88.2 Allergy status to sulfonamides; Z88.1 Allergy status to other antibiotic agents; Z88.5 Allergy status to narcotic agent; Z88.8 Allergy status to other drugs, medicaments and biological substances; Z90.710 Acquired absence of both cervix and uterus; Z95.1 Presence of aortocoronary bypass graft

== ENCOUNTER 2020-07-11 23:14 | Emergency (ER) | payer MEDICARE, MEDICAID ==
[~2020-07-11] VITALS: Ht 170.2 cm; Wt 69.8 kg
[2020-07-11 23:58] VITALS: BP 164/78
== END 2020-07-11 23:59 | disposition home or self-care (01) ==
LOC: M.ERS 23:14
DX: R53.1 Weakness (principal); Z20.828 Contact with and (suspected) exposure to other viral communicable diseases; E11.22 Type 2 diabetes mellitus with diabetic chronic kidney disease; N18.6 End stage renal disease; I50.9 Heart failure, unspecified; Z79.899 Other long term (current) drug therapy; Z99.2 Dependence on renal dialysis; Z79.4 Long term (current) use of insulin; Z88.1 Allergy status to other antibiotic agents; Z88.8 Allergy status to other drugs, medicaments and biological substances; Z88.2 Allergy status to sulfonamides; Z88.0 Allergy status to penicillin; Z90.710 Acquired absence of both cervix and uterus

== ENCOUNTER 2020-09-11 17:11 | Emergency (ER) | payer MEDICARE, MEDICAID ==
[~2020-09-11] VITALS: Ht 170.2 cm; Wt 73.5 kg
[2020-09-11] MEDS ORDERED: ONDANSETRON HCL4 M2 PO (18:25)
[2020-09-11] MEDS ORDERED: DOXYCYCLINE 10100 MG PO (18:25)
[2020-09-11 18:46] LABS: INFLUENZA A ANTIGEN Negative (Negative); INFLUENZA B ANTIGEN Negative (Negative)
[2020-09-11 18:55] VITALS: BP 125/71
== END 2020-09-11 18:56 | disposition left against medical advice (07) ==
LOC: M.ERS 17:11
PROVIDERS: Nurse Practitioner Family
DX: E11.621 Type 2 diabetes mellitus with foot ulcer (principal); L97.519 Non-pressure chronic ulcer of other part of right foot with unspecified severity; Z20.828 Contact with and (suspected) exposure to other viral communicable diseases; E11.9 Type 2 diabetes mellitus without complications; E11.22 Type 2 diabetes mellitus with diabetic chronic kidney disease; N18.6 End stage renal disease; E11.319 Type 2 diabetes mellitus with unspecified diabetic retinopathy without macular edema; Z88.1 Allergy status to other antibiotic agents; Z88.0 Allergy status to penicillin; Z88.2 Allergy status to sulfonamides; Z88.5 Allergy status to narcotic agent; Z88.8 Allergy status to other drugs, medicaments and biological substances; Z79.4 Long term (current) use of insulin; Z90.710 Acquired absence of both cervix and uterus; Z95.1 Presence of aortocoronary bypass graft; Z90.49 Acquired absence of other specified parts of digestive tract

== ENCOUNTER 2020-10-19 01:50 | Inpatient (IN) | payer MEDICARE, MEDICAID ==
[2020-10-19] VITALS (45 sets, daily range): BP systolic 91–183; BP diastolic 47–104
[~2020-10-19] VITALS: Ht 154.9 cm; Wt 77.5 kg
--- NOTE | ~2020-10-19 | CON ---
[address] [address] CONSULTATION Name: MARILUZ BARBOZA Room: [address] IN M.R.#: [id number] Admission: 10/19/20 Attend Phys: Virgilio Cheney MD Discharge: Date of : 53 Report #: [id number] THIS REPORT FOR: cc: Asya Rojo Stephanie P. DO ~ David Sanchez MD DATE OF SERVICE: 10/19/2020 NEPHROLOGY CONSULT HISTORY OF PRESENT ILLNESS: A 65-year-old female, who has a history of end-stage kidney disease, is seen at the [facility], has a history of noncompliance with either missing treatments or shortening treatments significantly. She is admitted with volume overload and hyperkalemia. She was recently also hospitalized at [facility]. She was found to have a potassium of 7 on admission and chest x-ray showing pulmonary edema. She is seen on dialysis, is tolerating treatment well without any complications. REVIEW OF SYSTEMS: Constitutional, psych, heme, eyes, ENT, respiratory, cardiac, GI, , endocrine, all negative except as documented above. PAST MEDICAL HISTORY: End-stage kidney disease, coronary artery disease, history of CABG, diabetes with diabetic retinopathy and blindness, history of permanent pacemaker and defibrillator, CHF. FAMILY HISTORY: Not pertinent to her clinical case. SOCIAL HISTORY: No tobacco. CURRENT MEDICATIONS: Reviewed. PHYSICAL EXAMINATION: VITAL SIGNS: Blood pressure is 176/80, pulse 86, respirations 19, temperature 37.0. GENERAL: No acute distress. EYES: Closed. EARS: Externally normal. CARDIOVASCULAR: Regular rate. LUNGS: Diminished breath sounds. ABDOMEN: Soft. MUSCULOSKELETAL: Nontender. PSYCHIATRIC: Awake, alert. LABORATORY DATA: White cell count 15.9, hemoglobin 8.9, platelets 240[place] [address] CONSULTATION Name: MARILUZ BARBOZA Room: [address]#: [id number] Admission: 10/19/20 Attend Phys: Virgilio Cheney MD Discharge: Date of : 53 Report #: [id number] 130, potassium 7, chloride 97, bicarbonate 20, BUN 145, creatinine 8.6, glucose 678, calcium 8.6, magnesium 3.1. ASSESSMENT: 1. End-stage kidney disease, hemodialysis Wednesday, Wednesday and Wednesday at the [facility]. 2. Severe hyperkalemia on admission with a potassium of 7. 3. Volume overload with pulmonary edema on chest x-ray, on admission. 4. Hyponatremia, with sodium of 130 on admission. 5. Diabetes with diabetic retinopathy and blindness and severe hyperglycemia with a glucose of 678 on admission. 6. Diabetic foot ulcer, with recent toe amputation and antibiotic administration while at [facility]. PLAN: The patient is seen on dialysis, using low potassium dialysate. We will ultrafilter as tolerated. We will follow for dialysis needs and anticipate next dialysis will be on Wednesday. She should be on a low potassium diet along with a 1.5-liter per day fluid restriction. Thank you for requesting my opinion in the care and management of this patient. By: 1422 2044Abigavin Sanchez MD /nt
[~2020-10-19 01:50] MED LIST changes: +DOXYCYCLINE 10100 MG PO; +ONDANSETRON HCL4 M2 PO
[2020-10-19 02:25] LABS: BE -7.3 mmol/L (-2 to +3); PCO2 38.2 mmHg (35.0-45.0); pH 7.302 (7.340-7.450)
[2020-10-19 02:27] LABS: PO2 147.4 mmHg (75.0-100.0)
[2020-10-19 03:05] LABS: INFLUENZA A ANTIGEN Negative (Negative); INFLUENZA B ANTIGEN Negative (Negative)
[2020-10-19 03:46] LABS: URINE BILIRUBIN NEGATIVE (Negative); URINE BLOOD 2+ (Negative); URINE CLARITY CLEAR; URINE COLOR YELLOW; URINE GLUCOSE-RANDOM 3+ (Negative); URINE KETONES NEGATIVE (Negative); URINE LEUKOCYTES-REFLEX NEGATIVE (Negative); URINE NITRITE-REFLEX NEGATIVE (Negative); URINE PROTEIN 3+ (Negative); URINE UROBILINOGEN 0.2 E.U./dl (0.2-1.0)
[2020-10-19 04:29] LABS: HEMATOCRIT 28.1 % (37.0-47.0); HEMOGLOBIN 8.9 gm/dL (12.0-15.0); MCH 28.6 pg (26.0-34.0); MCHC 31.5 g/dL (28.0-37.0); MCV 90.7 fL (80.0-100.0); MPV 7.9 fl. (7.2-11.1); NUCLEATED RBCS 0 /100WBC; PLATELET COUNT* 240 thou/uL (150-400); WBC 15.9 thou/uL (4.0-11.0)
[2020-10-19 04:45] LABS: SQUAMOUS >10 Many /LPF (0-3)
[2020-10-19 04:46] LABS: COARSE GRANULAR CASTS 0-3 Few /LPF (None Seen); HYALINE CASTS 0-3 Few /LPF (None Seen)
[2020-10-19 04:47] LABS: URINE RBC 3-10 Few /HPF (0-2); URINE WBC-REFLEX 0-5 Rare /HPF (0-5)
[2020-10-19 04:48] LABS: CRYSTALS None Seen /LPF (None Seen)
[2020-10-19 04:51] LABS: PROTIME 10.6 Seconds (9.20-11.50)
[2020-10-19 04:52] LABS: ANION GAP 13 mmol/L (7-16); BUN 145 mg/dL (7-18); CALCIUM 8.6 mg/dL (8.5-10.1); CHLORIDE 97 mmol/L (98-107); CO2 20 mmol/L (21-32); CREATININE 8.6 mg/dL (0.6-1.3); SODIUM 130 mmol/L (136-145)
[2020-10-19 04:54] LABS: GLUCOSE 678 mg/dL (70-99)
[2020-10-19 05:00] LABS: ALBUMIN 3.2 g/dL (3.4-5.0); ALKALINE PHOSPHATASE 130 U/L (46-116); LIPASE 298 U/L (73-393); MAGNESIUM 3.1 mg/dL (1.8-2.4); NT-PRO BRAIN NAT PEPTIDE > 35000 pg/mL (<300); SGOT 12 U/L (15-37); SGPT 19 U/L (30-65); TOTAL BILIRUBIN 0.3 mg/dL (<0.1-1.0); TOTAL PROTEIN 6.7 g/dL (6.4-8.2)
[2020-10-19 07:01] LABS: ABSOLUTE LYMPHOCYTES 0.3 thou/uL (0.8-5.3); ABSOLUTE MONOCYTES 0.2 thou/uL (0.0-1.2); ABSOLUTE NEUTROPHILS 15.4 thou/uL (1.6-8.1)
[2020-10-19 07:02] LABS: PLATELET ESTIMATE ADEQUATE
[2020-10-20 05:44] LABS: ABSOLUTE BASOPHILS 0.1 thou/uL (0.0-0.2); ABSOLUTE LYMPHOCYTES 1.3 thou/uL (0.8-5.3); ABSOLUTE MONOCYTES 1.2 thou/uL (0.0-1.2); ABSOLUTE NEUTROPHILS 9.4 thou/uL (1.6-8.1); BASOPHILS 0.5 %; EOSINOPHILS 0.4 %; HEMATOCRIT 24.1 % (37.0-47.0); HEMOGLOBIN 7.9 gm/dL (12.0-15.0); LYMPHOCYTES 10.5 %; MCH 28.6 pg (26.0-34.0); MCHC 32.9 g/dL (28.0-37.0); MCV 86.9 fL (80.0-100.0); MONOCYTES 9.9 %; MPV 7.5 fl. (7.2-11.1); NUCLEATED RBCS 0 /100WBC; PLATELET COUNT* 242 thou/uL (150-400); POLYS 78.7 %; RBC 2.77 mil/uL (4.20-5.00); WBC 11.9 thou/uL (4.0-11.0)
[2020-10-20 05:51] LABS: CALCIUM 8.3 mg/dL (8.5-10.1); POTASSIUM 4.3 mmol/L (3.5-5.1)
[2020-10-20 06:08] LABS: CREATININE 4.8 mg/dL (0.6-1.3)
[2020-10-20 09:35] VITALS: BP 126/56
--- NOTE | 2020-10-20 11:35 | CON ---
[address] [address] CONSULTATION Name: MARILUZ BARBOZA Room: [address] IN M.R.#: [id number] Admission: 10/19/20 Attend Phys: Virgilio Cheney MD Discharge: Date of : 53 Report #: [id number] THIS REPORT FOR: cc: Asya Rojo Stephanie P. DO ~ Charles Barton MD [facility] DATE OF SERVICE: 10/19/2020 CARDIOLOGY CONSULTATION INDICATION: Elevated troponin. HISTORY OF PRESENT ILLNESS: The patient is a 65-year-old white female with end-stage renal disease, on dialysis Wednesday, Wednesday, Wednesday. She presents to the Emergency Room by ambulance with complaints of shortness of breath and altered mental status. The patient apparently missed her dialysis on Wednesday. She came in with evidence of volume overload and electrolyte abnormalities including hyperkalemia. She has a history of three-vessel coronary artery bypass grafting and carotid endarterectomy in 2018. In this setting, the patient is noted to have an elevated troponin as well as significantly elevated NT-proBNP. She is not complaining of any chest pain, tightness or pressure. EKG shows atrially sensed and ventricularly paced rhythm. With the exception of shortness of breath, she is without other cardiac complaint. She apparently has a history of recent toe amputation secondary to gangrene at outside hospital. PAST MEDICAL HISTORY: 1. Coronary artery disease. 2. Cardiomyopathy with EF of 25%, presumed to be ischemic. 3. Status post pacemaker placement. 4. Carotid disease with previous carotid endarterectomy. 5. Chronic systolic heart failure. 6. Chronic anemia. 7. Type 2 diabetes mellitus. 8. End-stage renal disease, on dialysis. 9. 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 10. Remote history of pulmonary emboli. PAST SURGICAL HISTORY: [place] [address] CONSULTATION Name: MARILUZ BARBOZA Room: [address] IN [facility].#: [id number] Admission: 10/19/20 Attend Phys: Virgilio Cheney MD Discharge: Date of : 53 Report #: [id number] 1. Hysterectomy. 2. Three-vessel CABG in 2018. 3. Appendectomy. 4. Pacemaker placement with ICD for primary prevention. 5. Right fistula in the arm. FAMILY HISTORY: Noncontributory. SOCIAL HISTORY: The patient is a lifelong nonsmoker. She does not drink alcohol. ALLERGIES: CEPHALOSPORINS, CIPROFLOXACIN, CLINDAMYCIN, CODEINE, INSULIN, METFORMIN, PENICILLIN, PRAVASTATIN, STATINS IN GENERAL, AND SULFAS. REVIEW OF SYSTEMS: Not obtainable as the patient is fairly lethargic at this time. PHYSICAL EXAMINATION: VITAL SIGNS: Blood pressure 176/80, pulse is 86 and regular. GENERAL: This is fairly lethargic female who does not appear to be in distress. HEENT: Head is normocephalic, atraumatic. NECK: Shows no obvious jugular venous distention. CHEST: Reveals diminished breath sounds without wheezes or rales. CARDIOVASCULAR: Reveals a regular rhythm. I do not appreciate gallop or murmur. ABDOMEN: Reveals a protuberant abdomen, soft, bowel sounds present. EXTREMITIES: Shows 1+ edema to the ankles and lower legs bilaterally. SKIN: Dry. Peripheral pulses diminished. LABORATORY DATA: A 12-lead EKG shows atrially sensed ventricularly paced rhythm. Rate is regular. Labs are reviewed. Sodium 130, potassium 7.0, chloride 97, bicarbonate 20, BUN 145, creatinine 8.6, serum glucose 678. Troponin on arrival 0.31, subsequently 1.40. NT-proBNP is greater than 35,000 white blood cell count 15.9, hemoglobin 8.9, platelet count 240,000. Chest x-ray shows placement of a right IJ. No pneumothorax. Bilateral multifocal pulmonary opacities consistent with edema. Bilateral effusions. IMPRESSION AND RECOMMENDATIONS: 1. Elevated troponin secondary to strain. Doubt acute coronary syndrome in this setting. We will not pursue invasive evaluation. 2. Acute on chronic heart failure, likely combined. [place] [address] CONSULTATION Name: MARILUZ BARBOZA Room: [address] ADM IN M.R.#: [id number] Admission: 10/19/20 Attend Phys: Virgilio Cheney MD Discharge: Date of : 53 Report #: [id number] dependent. She is being placed on dialysis at this time. She will have volume removed through dialysis. Not a candidate for any type of diuresis. 3. Coronary artery disease, presently stable. She is not having any symptoms to suggest angina. 4. History of CABG as outlined above. 5. Hyperkalemia secondary to renal failure and missed dialysis. 6. Hyperglycemia. <ELECTRONICALLY SIGNED> By: Charles Barton MD, FACC 10/20/20 1135 1348 2046[facility]fl[facility] healthcareeleni Barton MD, FACC /nt
[2020-10-20 13:25] VITALS: BP 118/48
[2020-10-20 18:13] VITALS: BP 130/55
[2020-10-20 21:00] VITALS: BP 121/55
[2020-10-21] VITALS: BP 111/45
[2020-10-21 04:00] VITALS: BP 126/51
[2020-10-21 04:47] LABS: ABSOLUTE EOSINOPHILS 0.1 thou/uL (0.0-0.7); ABSOLUTE LYMPHOCYTES 1.1 thou/uL (0.8-5.3); ABSOLUTE MONOCYTES 1.1 thou/uL (0.0-1.2); ABSOLUTE NEUTROPHILS 5.9 thou/uL (1.6-8.1); BASOPHILS 0.5 %; EOSINOPHILS 1.5 %; HEMATOCRIT 24.2 % (37.0-47.0); HEMOGLOBIN 8.2 gm/dL (12.0-15.0); LYMPHOCYTES 13.7 %; MCH 29.4 pg (26.0-34.0); MCHC 33.8 g/dL (28.0-37.0); MCV 87.1 fL (80.0-100.0); MONOCYTES 12.8 %; MPV 8.1 fl. (7.2-11.1); NUCLEATED RBCS 0 /100WBC; PLATELET COUNT* 236 thou/uL (150-400); POLYS 71.5 %; RBC 2.78 mil/uL (4.20-5.00); RDW-CV 14.3 % (10.5-14.5); WBC 8.3 thou/uL (4.0-11.0)
[2020-10-21 05:15] LABS: ALBUMIN 2.8 g/dL (3.4-5.0); CALCIUM 7.9 mg/dL (8.5-10.1); POTASSIUM 4.4 mmol/L (3.5-5.1); TOTAL BILIRUBIN 0.2 mg/dL (<0.1-1.0); TOTAL PROTEIN 6.3 g/dL (6.4-8.2)
[2020-10-21 05:35] LABS: CREATININE 6.6 mg/dL (0.6-1.3)
--- NOTE | 2020-10-21 10:29 | EKG ---
[place] [address] ELECTROCARDIOGRAM REPORT Name: MARILUZ BARBOZA Room: [address] ADM IN M.R.#: [id number] Admission: 10/19/20 Attend Phys: Virgilio Cheney, Discharge: Date of : 53 Date of Service: 10/19/20 0218 Report #: [id number] THIS REPORT FOR: //name// [facility] ED Test Date: 2020-10-19 Test Time: 02:18:10 Pat Name: MARILUZ BARBOZA Department: Room: [facility] Gender: F Chemistry Associate: BRYCE : 1955 Requested By: Wendy Su Order Number: [id number] MD: Lonny Silva Measurements Intervals [place] Rate: 82 P: 75 AR: 202 QRS: -43 QRSD: 165 T: 127 QT: 483 QTc: 565 Interpretive Statements Atrial-sensed ventricular-paced rhythm No further analysis attempted due to paced rhythm Compared to ECG 01/08/2020 03:35:29 no change Electronically Signed On 10-21-2020 10:29:02 [employer] by Lonny Silva [email or web address] <ELECTRONICALLY SIGNED> By: Lonny Silva MD, FAC 10/21/20 1029 7 7 Lonny Silva MD, FAC /EPI
[2020-10-21 13:30] VITALS: BP 143/68
[2020-10-21 16:13] VITALS: BP 133/49
[2020-10-21 21:20] VITALS: BP 133/58
[2020-10-22 00:41] VITALS: BP 106/51
[2020-10-22 03:58] VITALS: BP 129/51
[2020-10-22 04:17] LABS: ABSOLUTE BASOPHILS 0.1 thou/uL (0.0-0.2); ABSOLUTE EOSINOPHILS 0.1 thou/uL (0.0-0.7); ABSOLUTE LYMPHOCYTES 1.3 thou/uL (0.8-5.3); ABSOLUTE MONOCYTES 1.3 thou/uL (0.0-1.2); ABSOLUTE NEUTROPHILS 7.8 thou/uL (1.6-8.1); BASOPHILS 0.5 %; EOSINOPHILS 0.8 %; HEMATOCRIT 27.6 % (37.0-47.0); HEMOGLOBIN 9.1 gm/dL (12.0-15.0); LYMPHOCYTES 12.3 %; MCH 29.3 pg (26.0-34.0); MCHC 33.1 g/dL (28.0-37.0); MCV 88.5 fL (80.0-100.0); MONOCYTES 12.4 %; MPV 7.6 fl. (7.2-11.1); NUCLEATED RBCS 0 /100WBC; PLATELET COUNT* 252 thou/uL (150-400); RBC 3.12 mil/uL (4.20-5.00); RDW-CV 14.3 % (10.5-14.5); WBC 10.6 thou/uL (4.0-11.0)
[2020-10-22 04:41] LABS: ALBUMIN 2.9 g/dL (3.4-5.0); CALCIUM 8.3 mg/dL (8.5-10.1); POTASSIUM 4.1 mmol/L (3.5-5.1); TOTAL BILIRUBIN 0.3 mg/dL (<0.1-1.0); TOTAL PROTEIN 6.5 g/dL (6.4-8.2)
[2020-10-22 04:42] LABS: CREATININE 4.8 mg/dL (0.6-1.3)
[2020-10-22 09:00] VITALS: BP 148/60
[2020-10-22 11:35] VITALS: BP 130/52
[2020-10-22 17:38] VITALS: BP 108/45
[2020-10-22 17:47] VITALS: BP 108/45
== END 2020-10-22 18:51 | disposition home or self-care (01) | DRG 177 ==
LOC: M.ERS 01:50 → M.ICU 05:12 → M.TBA-ER 05:12 → M.2W 05:12 → M.ICU 07:11 → M.2W 10-20 18:16
PROVIDERS: Emergency Medicine; ADMIT Internal Medicine; ATTEND Internal Medicine
DX: J15.6 Pneumonia due to other Gram-negative bacteria (principal); E11.00 Type 2 diabetes mellitus with hyperosmolarity without nonketotic hyperglycemic-hyperosmolar coma (NKHHC); J96.01 Acute respiratory failure with hypoxia; N18.6 End stage renal disease; I50.43 Acute on chronic combined systolic (congestive) and diastolic (congestive) heart failure; I21.4 Non-ST elevation (NSTEMI) myocardial infarction; I42.9 Cardiomyopathy, unspecified; E87.1 Hypo-osmolality and hyponatremia; E11.52 Type 2 diabetes mellitus with diabetic peripheral angiopathy with gangrene; I96 Gangrene, not elsewhere classified; Z88.8 Allergy status to other drugs, medicaments and biological substances; E11.621 Type 2 diabetes mellitus with foot ulcer; E87.5 Hyperkalemia; I25.10 Atherosclerotic heart disease of native coronary artery without angina pectoris; E11.65 Type 2 diabetes mellitus with hyperglycemia; D63.1 Anemia in chronic kidney disease; E11.22 Type 2 diabetes mellitus with diabetic chronic kidney disease; Z20.822 Contact with and (suspected) exposure to COVID-19; Z90.49 Acquired absence of other specified parts of digestive tract; Z95.1 Presence of aortocoronary bypass graft; Z91.19 Patient's noncompliance with other medical treatment and regimen; Z90.710 Acquired absence of both cervix and uterus; Z99.2 Dependence on renal dialysis; Z79.82 Long term (current) use of aspirin; Z79.4 Long term (current) use of insulin; Z79.899 Other long term (current) drug therapy; Z88.1 Allergy status to other antibiotic agents; Z88.5 Allergy status to narcotic agent; Z88.0 Allergy status to penicillin; Z88.2 Allergy status to sulfonamides

== ENCOUNTER 2020-11-24 01:26 | Emergency (ER) | payer MEDICARE, MEDICAID ==
[~2020-11-24] VITALS: Ht 170.2 cm; Wt 72.1 kg
[2020-11-24] MEDS ORDERED: LEVSIN0.125 MG PO (01:45)
[2020-11-24 02:08] VITALS: BP 175/78
== END 2020-11-24 02:08 | disposition home or self-care (01) ==
LOC: M.ERS 01:26
DX: T83.098A Other mechanical complication of other urinary catheter, initial encounter (principal); E11.22 Type 2 diabetes mellitus with diabetic chronic kidney disease; E11.319 Type 2 diabetes mellitus with unspecified diabetic retinopathy without macular edema; N18.6 End stage renal disease; I50.22 Chronic systolic (congestive) heart failure; J96.11 Chronic respiratory failure with hypoxia; Z88.1 Allergy status to other antibiotic agents; Z88.0 Allergy status to penicillin; Z88.2 Allergy status to sulfonamides; Z88.8 Allergy status to other drugs, medicaments and biological substances; Z90.49 Acquired absence of other specified parts of digestive tract; Z90.710 Acquired absence of both cervix and uterus; Z95.1 Presence of aortocoronary bypass graft; Z99.2 Dependence on renal dialysis; Z79.4 Long term (current) use of insulin; Y84.8 Other medical procedures as the cause of abnormal reaction of the patient, or of later complication, without mention of misadventure at the time of the procedure; Y92.89 Other specified places as the place of occurrence of the external cause

== ENCOUNTER 2021-01-27 21:02 | Emergency (ER) | payer MEDICARE, MEDICAID ==
[~2021-01-27] VITALS: Ht 165.1 cm; Wt 84.8 kg
[~2021-01-27 21:02] MED LIST changes: +LEVSIN0.125 MG PO
[2021-01-27 21:23] VITALS: BP 0/0
== END 2021-01-27 21:23 ==
LOC: M.ERS 21:02
DX: I46.9 Cardiac arrest, cause unspecified (principal); E11.22 Type 2 diabetes mellitus with diabetic chronic kidney disease; N18.6 End stage renal disease; K73.9 Chronic hepatitis, unspecified; J96.11 Chronic respiratory failure with hypoxia; I50.22 Chronic systolic (congestive) heart failure; E11.319 Type 2 diabetes mellitus with unspecified diabetic retinopathy without macular edema; Z88.1 Allergy status to other antibiotic agents; Z88.2 Allergy status to sulfonamides; Z88.0 Allergy status to penicillin; Z88.5 Allergy status to narcotic agent; Z88.8 Allergy status to other drugs, medicaments and biological substances; Z90.49 Acquired absence of other specified parts of digestive tract; Z99.2 Dependence on renal dialysis; Z95.1 Presence of aortocoronary bypass graft; Z90.710 Acquired absence of both cervix and uterus